=== PATIENT | female | born 1945 | race Caucasian/White ===

== ENCOUNTER → 2016-04-06 | Outpatient (CLI) | payer MEDICARE ==
--- NOTE | 2016-04-11 09:09 | MM ---
Reason for exam: screening (asymptomatic). Last mammogram was performed 1 year ago. History: Patient is postmenopausal and has history of other cancer at age 58. Took estrogen for 2 years 10 months beginning at age 59. Took progesterone for 2 years 10 months beginning at age 59. Physical Findings: A clinical breast exam by your physician is recommended on an annual basis and results should be correlated with mammographic findings. MG 3D Screening Mammo W/Cad Bilateral CC and MLO view(s) were taken. Prior study comparison: March 30, 2015, bilateral MG screening mammo w CAD. March 04, 2014, bilateral MG screening mammo w CAD. No significant changes when compared with prior studies. ASSESSMENT: Benign, BI-RAD 2 RECOMMENDATION: Routine screening mammogram of both breasts in 1 year.
== END | disposition home or self-care (01) ==
LOC: RADMAMWWP 14:00
PROVIDERS: ATTEND Obstetrics & Gynecology
DX: Z12.31 Encounter for screening mammogram for malignant neoplasm of breast (principal)
CPT/HCPCS: 77063; G0202

== ENCOUNTER → 2017-04-08 | Outpatient (CLI) | payer MEDICARE ==
--- NOTE | 2017-04-10 07:07 | MM ---
Reason for exam: screening (asymptomatic). Last mammogram was performed 1 year ago. History: Patient is postmenopausal and has history of other cancer at age 58. Took estrogen for 2 years 10 months beginning at age 59. Took progesterone for 2 years 10 months beginning at age 59. Physical Findings: A clinical breast exam by your physician is recommended on an annual basis and results should be correlated with mammographic findings. MG 3D Screening Mammo W/Cad Bilateral CC and MLO view(s) were taken. Prior study comparison: April 06, 2016, bilateral MG 3d screening mammo w/cad. March 30, 2015, bilateral MG screening mammo w CAD. March 04, 2014, bilateral MG screening mammo w CAD. The breast tissue is heterogeneously dense. This may lower the sensitivity of mammography. There are two stable benign appearing, round, circumscribed masses in the upper outer quadrant on the right breast back to 2013. No suspicious abnormality. No significant changes when compared with prior studies. ASSESSMENT: Benign, BI-RAD 2 RECOMMENDATION: Routine screening mammogram of both breasts in 1 year.
== END | disposition home or self-care (01) ==
LOC: RADMAMWWP 12:37
PROVIDERS: ATTEND Obstetrics & Gynecology
DX: Z12.31 Encounter for screening mammogram for malignant neoplasm of breast (principal)
CPT/HCPCS: 77063; 77067

== ENCOUNTER → 2018-02-07 | Outpatient (CLI) | payer MEDICARE ==
--- NOTE | 2018-02-08 13:27 | US ---
EXAMINATION TYPE: US kidneys/renal and bladder DATE OF EXAM: 02/07/2018 COMPARISON: NONE CLINICAL HISTORY: R31.9 HEMATURIA. episode of hematuria 8 weeks ago, no symptoms at time of exam EXAM MEASUREMENTS: Right Kidney: 8.8 x 4.4 x 3.4 cm Left Kidney: 9.5 x 3.6 x 4.2 cm Right Kidney: No hydronephrosis or masses seen Left Kidney: No hydronephrosis or masses seen Bladder: wnl Bilateral Jets seen: left jet only There is no evidence for hydronephrosis at this point in time. No nephrolithiasis is seen. No courtney s are identified. The urinary bladder is anechoic. Bilateral ureteral jets are seen. IMPRESSION: No evidence of hydronephrosis or nephrolithiasis. No sonographic sequela of medical renal disease see n.
== END | disposition home or self-care (01) ==
LOC: RADUSWWP 16:12
PROVIDERS: ATTEND Urology
DX: R31.9 Hematuria, unspecified (principal)
CPT/HCPCS: 76770

== ENCOUNTER → 2018-02-12 | Outpatient (CLI) | payer MEDICARE ==
--- NOTE | 2018-02-12 11:48 | CT ---
EXAMINATION TYPE: CT chest wo con DATE OF EXAM: 02/12/2018 COMPARISON: Prior films at [facility] unavailable for comparison HISTORY: pulmonary collapse CT DLP: 331 mGycm, Automated exposure control for dose reduction was used. CONTRAST: Performed injected with 0 mL of Isovue 300. TECHNIQUE: Axial images were obtained at 5 mm thick sections. Reconstructed images are reviewed on [employer] computer in the coronal plane. FINDINGS: Portion of the thyroid visualized is normal. Minimal infiltrate is in the medial right middle lobe. No enlarged mediastinal or hilar adenopathy is evident. The ascending aorta diameter at the level o f the main pulmonary artery is 3.3 cm. The main pulmonary artery diameter at the bifurcation is 2.6 cm. There is a moderate pericardial effusion. Limited CT sections are obtained through the upper abdomen. There appears to be a cyst at superior po le right lobe liver measuring 1.1 cm and 5 Hounsfield units. Tiny cyst may be within the left lobe li juancarlos. IMPRESSIONS: 1. Moderate pericardial effusion. 2. Hepatic cyst 3. Small right middle lobe streak opacity could be related atelectasis. Follow-up is recommended.
== END | disposition home or self-care (01) ==
LOC: RADCTMAIN 10:58
PROVIDERS: ATTEND Internal Medicine
DX: I31.3 Pericardial effusion (noninflammatory) (principal); R91.8 Other nonspecific abnormal finding of lung field; K76.89 Other specified diseases of liver
CPT/HCPCS: 71250

== ENCOUNTER → 2018-03-04 | Outpatient (CLI) | payer MEDICARE ==
--- NOTE | 2018-03-05 11:07 | ECHOF ---
Referral Reason:I31.3 Pericardial effusion, (noninflammatory) MEASUREMENTS -------- HEIGHT: 165.1 cm WEIGHT: 55.3 kg BP: 153/70 RVIDd: 3.5 cm (< 3.3) IVSd: 0.7 cm (0.6 - 1.1) LVIDd: 4.2 cm (3.9 - 5.3) LVPWd: 0.8 cm (0.6 - 1.1) IVSs: 1.1 cm LVIDs: 2.5 cm LVPWs: 1.4 cm LA Diam: 2.9 cm (2.7 - 3.8) LAESV Index (A-L): 15.34 ml/m Ao Diam: 3.3 cm (2.0 - 3.7) AV Cusp: 1.8 cm (1.5 - 2.6) MV EXCURSION: 13.362 mm (> 18.000) MV EF SLOPE: 55 mm/s (70 - 150) EPSS: 0.7 cm MV E Gabriel: 0.80 m/s MV DecT: 252 ms MV A Gabriel: 0.81 m/s MV E/A Ratio: 0.99 FINDINGS -------- Sinus rhythm. Resting bradycardia (HR<60bpm). This was a technically good study. The left ventricular size is normal. Left ventricular wall thickness is normal. Overall left vent ricular systolic function is normal with, an EF between 55 - 60 %. The right ventricle is mildly enlarged. Normal LA size by volume 22+/-6 ml/m2. The right atrium is normal in size. The aortic valve is trileaflet and appears structurally normal. The mitral valve is normal. Mild mitral regurgitation is present. The tricuspid valve appears structurally normal. Trace/mild (physiologic) pulmonic regurgitation. The aortic root size is normal. Normal inferior vena cava with normal inspiratory collapse consistent with estimated right atrial pre ssure of 5 mmHg. There is a small, generalized pericardial effusion present. CONCLUSIONS -------- 1. Sinus rhythm. 2. Resting bradycardia (HR<60bpm). 3. This was a technically good study. 4. The left ventricular size is normal. 5. Left ventricular wall thickness is normal. 6. Overall left ventricular systolic function is normal with, an EF between 55 - 60 %. 7. The right ventricle is mildly enlarged. 8. Normal LA size by volume 22+/-6 ml/m2. 9. The aortic valve is trileaflet and appears structurally normal. 10. Mild mitral regurgitation is present. 11. The tricuspid valve appears structurally normal. 12. Trace/mild (physiologic) pulmonic regurgitation. 13. The aortic root size is normal. 14. Normal inferior vena cava with normal inspiratory collapse consistent with estimated right atrial pressure of 5 mmHg. 15. There is a small, generalized pericardial effusion present. RN MEDICARE: Mirela Torres RDCS
== END | disposition home or self-care (01) ==
LOC: RADECHMAIN 13:14
PROVIDERS: ATTEND Internal Medicine
DX: I31.3 Pericardial effusion (noninflammatory) (principal); I34.0 Nonrheumatic mitral (valve) insufficiency; I51.7 Cardiomegaly; Z88.2 Allergy status to sulfonamides
CPT/HCPCS: 93306

== ENCOUNTER → 2018-04-09 | Outpatient (CLI) | payer MEDICARE ==
--- NOTE | 2018-04-09 16:40 | BD ---
EXAMINATION TYPE: Axial Bone Density DATE OF EXAM: 04/09/2018 CLINICAL HISTORY: Height: 64 inches Weight: 117 FRAX RISK QUESTIONS: Alcohol (3 or more units per day): no Family History (Parent hip fracture): yes Glucocorticoids (More than 3mos): no (Ex: prednisone, prednisolone, methylprednisolone, dexamethasone, and hydrocortisone). History of Fracture in Adulthood: yes, right distal femur when in 20's Secondary Osteoporosis: 1. Type 1 Diabetes: no 2. Hyperthyroidism: no 3. Menopause before 45: no, 46 4. Malnutrition: no 5. Chronic liver disease: no Rheumatoid Arthritis: no Current Tobacco Use: no RISK FACTORS HISTORY OF: Family History of Osteoporosis: unsure, probably not Active: yes Diet low in dairy products/other sources of calcium: somewhat Postmenopausal woman: yes Take estrogen and/or progesterone medications: not now How long: about 2 1/2 years Lost more than 2 inches in height since high school: no Frequent falls: no Poor Health: no Hyperparathyroidism: no Adrenal Insufficiency: no MEDICATIONS: Prednisone or other steroids: no Thyroid Medications: yes Which medication: Synthroid How Long: over 20 years Osteoporosis Medications: Which medication: Fosamax How Long: about the last 2 years( years ago also used Fosamax & Actonel) Additional Medications: blood pressure meds, cholesterol, multi-vitamin with calcium Additional History: EXAM MEASUREMENTS: Bone mineral densitometry was performed using the [employer] System. Bone mineral density as measured about the Lumbar spine is: ----- L1-L4(G/cm2): 1.195 T Score Values are as follows: ----- L2: 0.3 ----- L3: 0.6 ----- L4: 0.7 ----- L1-L4: 0.1 Bone mineral density has: Increased 6.6% since study of: 03/22/2016 Bone mineral density about the R hip (g/cm2): 0.784 Bone mineral density about the L hip (g/cm2): 0.858 T Score values are as follows: -----R Neck: -1.8 -----L Neck: -1.3 -----R Total: -2.7 -----L Total: -1.9 Bone mineral density has: Increased 2.7% since study of: 03/22/2016 IMPRESSION: Osteoporosis (T Score less than -2.5). There is increased fracture risk and therapy is usually indicated based on age. Re-Screen 1-2 years. NOTE: T-SCORE=SD OF THE YOUNG ADULT MEAN.
--- NOTE | 2018-04-12 12:20 | MM ---
Reason for exam: screening (asymptomatic). Last mammogram was performed 1 year ago. History: Patient is postmenopausal and has history of other cancer at age 58. Took estrogen for 2 years 10 months beginning at age 59. Took progesterone for 2 years 10 months beginning at age 59. MG 3D Screening Mammo W/Cad Bilateral CC and MLO view(s) were taken. Prior study comparison: April 08, 2017, bilateral MG 3d screening mammo w/cad. April 06, 2016, bilateral MG 3d screening mammo w/cad. The breast tissue is heterogeneously dense. This may lower the sensitivity of mammography. There are benign-appearing bilateral breast calcifications. No suspicious abnormality. ASSESSMENT: Benign, BI-RAD 2 RECOMMENDATION: Routine screening mammogram of both breasts in 1 year.
== END ==
LOC: RADMAMWWP 10:15
PROVIDERS: ATTEND Obstetrics & Gynecology
DX: Z12.31 Encounter for screening mammogram for malignant neoplasm of breast (principal); M81.0 Age-related osteoporosis without current pathological fracture
CPT/HCPCS: 77063; 77067; 77080

== ENCOUNTER 2019-03-21 11:15 | Emergency (ER) | payer MEDICARE ==
[2019-03-21 11:23] VITALS: TEMP 97.9
[2019-03-21] MEDS ORDERED: SODIUM CHLORIDE 0.9% 1,000 ML IV STA (11:51)
[2019-03-21] MEDS ORDERED: ONDANSETRON 4 MG/2 ML VIAL IVP STA (11:51)
--- NOTE | 2019-03-21 11:52 | ED ---
GI Bleed HPI - General Chief complaint: GI Bleed Stated complaint: vomiting/diarrhea/blood in stool Time Seen by Provider: 03/21/19 11:25 Source: patient Mode of arrival: ambulatory Limitations: no limitations - History of Present Illness Initial comments: 73-year-old female presenting today for chief complaint of blood in stools per patient states she woke up in the middle the night and had 4 hours of vomiting and diarrhea. She states the last 2 episodes of diarrhea she had blood in the stool she states it is a pretty significant amount. Patient denies additional episodes she states that she does have history of hemorrhoids. Patient denies any known history of diverticulosis. Patient denies any anticoagulation use. Patient denies any large clots in the bowel movements. Patient states that she do not have any severe abdominal pain she states is more crampy in nature and not localize more diffuse. Patient states that has completely subsided. Patient states she is feeling better and feels like she has an appetite. Review of systems negative upon arrival patient appears well no signs acute distress hemodynamically stable - Related Data Allergies Allergy/AdvReac Type Severity Reaction Status Date / Time Sulfa (Sulfonamide Allergy Rash/Hives Verified 03/21/19 11:19 Antibiotics) Review of Systems ROS Statement: Those systems with pertinent positive or pertinent negative responses have been documented in the HPI. ROS Other: All systems not noted in ROS Statement are negative. Past Medical History Past Medical History: Hyperlipidemia, Hypertension, Thyroid Disorder History of Any Multi-Drug Resistant Organisms: None Reported Past Surgical History: No Surgical Hx Reported Past Psychological History: No Psychological Hx Reported Smoking Status: Never smoker Past Alcohol Use History: None Reported, Occasional Past Drug Use History: None Reported General Exam - General Exam Comments Initial Comments: General: The patient is awake and alert, in no distress, and does not appear acutely ill. Eye: +3 mm pupils are equal, round and reactive to light, extra-ocular movements are intact. No nystagmus. There is normal conjunctiva bilaterally. No signs of icterus. Ears, nose, mouth and throat: There are moist mucous membranes and no oral lesions. Neck: The neck is supple, there is no tenderness or JVD. Cardiovascular: There is a regular rate and rhythm. No murmur, rub or gallop is appreciated. Respiratory: Lungs are clear to auscultation, respirations are non-labored, breath sounds are equal. No wheezes, stridor, rales, or rhonchi. Gastrointestinal: Soft, non-distended, non-tender abdomen without masses or organomegaly noted. There is no rebound or guarding present. No bright red blood on digital rectal examination obvious internal or external hemorrhoids. I do not appear thrombosed. Musculoskeletal: Normal ROM, no tenderness. Strength 5/5. Sensation intact. Radial pulses equal bilaterally 2+. Neurological: A&O x 3. CN II-XII intact grossly, There are no obvious motor or sensory deficits. Coordination appears grossly intact. Speech is normal. Skin: Skin is warm and dry and no rashes or lesions are noted. Psychiatric: Cooperative, appropriate mood & affect, normal judgment. Limitations: no limitations Course Vital Signs 03/21/19 03/21/19 11:20 13:40 Temperature 97.9 F 97.9 F Pulse Rate 106 H 59 L Respiratory 18 16 Rate Blood Pressure 151/80 145/81 O2 Sat by Pulse 97 100 Oximetry Medical Decision Making - Medical Decision Making 73-year-old female presenting today for chief complaint of blood in stools 2 episodes history of hemorrhoids. Rectal exam revealed no blood. Patient denies additional episodes. Hemoglobin stable patient states she is initially anxious upon arrival repeat heart rate within normal limits. Patient does not appear pale nor diaphoretic. Patient benign abdominal exam. Discussed imaging studies at this time the patient most likely has GI bleeding from colitis given history of vomiting diarrhea. I discussed the case with attending provider Dr. Finley who agrees with impression he is agreeable to discharge and very strict return parameters were discussed at length the patient patient was discharged appearing well with instruction to return to emergency department for additional episodes of bloody stools. - Lab Data Result diagrams: 03/21/19 11:55 03/21/19 11:55 Lab Results 03/21/19 03/21/19 03/21/19 Range/Units 11:40 11:55 11:55 WBC 8.7 (3.8-10.6) k/uL RBC 4.77 (3.80-5.40) m/uL Hgb 14.6 (11.4-16.0) gm/dL Hct 43.1 (34.0-46.0) % MCV 90.4 (80.0-100.0) fL MCH 30.7 (25.0-35.0) pg MCHC 33.9 (31.0-37.0) g/dL RDW 12.1 (11.5-15.5) % Plt Count 209 (150-450) k/uL Neutrophils % 87 % Lymphocytes % 9 % Monocytes % 3 % Eosinophils % 0 % Basophils % 0 % Neutrophils # 7.6 (1.3-7.7) k/uL Lymphocytes # 0.8 L (1.0-4.8) k/uL Monocytes # 0.2 (0-1.0) k/uL Eosinophils # 0.0 (0-0.7) k/uL Basophils # 0.0 (0-0.2) k/uL APTT (22.0-30.0) sec Sodium 140 (137-145) mmol/L Potassium 3.8 (3.5-5.1) mmol/L Chloride 103 (98-107) mmol/L Carbon Dioxide 30 (22-30) mmol/L Anion Gap 7 mmol/L BUN 16 (7-17) mg/dL Creatinine 0.80 (0.52-1.04) mg/dL Est GFR (CKD-EPI)AfAm 84 (>60 ml/min/1.73 sqM) Est GFR (CKD-EPI)NonAf 73 (>60 ml/min/1.73 sqM) Glucose 121 H (74-99) mg/dL Calcium 9.6 (8.4-10.2) mg/dL Total Bilirubin 1.0 (0.2-1.3) mg/dL AST 32 (14-36) U/L ALT 14 (4-34) U/L Alkaline Phosphatase 52 (38-126) U/L Total Protein 7.6 (6.3-8.2) g/dL Albumin 4.5 (3.5-5.0) g/dL Stool Occult Blood Positive H (Negative) 03/21/19 Range/Units 11:55 WBC (3.8-10.6) k/uL RBC (3.80-5.40) m/uL Hgb (11.4-16.0) gm/dL Hct (34.0-46.0) % MCV (80.0-100.0) fL MCH (25.0-35.0) pg MCHC (31.0-37.0) g/dL RDW (11.5-15.5) % Plt Count (150-450) k/uL Neutrophils % % Lymphocytes % % Monocytes % % Eosinophils % % Basophils % % Neutrophils # (1.3-7.7) k/uL Lymphocytes # (1.0-4.8) k/uL Monocytes # (0-1.0) k/uL Eosinophils # (0-0.7) k/uL Basophils # (0-0.2) k/uL APTT 24.1 (22.0-30.0) sec Sodium (137-145) mmol/L Potassium (3.5-5.1) mmol/L Chloride (98-107) mmol/L Carbon Dioxide (22-30) mmol/L Anion Gap mmol/L BUN (7-17) mg/dL Creatinine (0.52-1.04) mg/dL Est GFR (CKD-EPI)AfAm (>60 ml/min/1.73 sqM) Est GFR (CKD-EPI)NonAf (>60 ml/min/1.73 sqM) Glucose (74-99) mg/dL Calcium (8.4-10.2) mg/dL Total Bilirubin (0.2-1.3) mg/dL AST (14-36) U/L ALT (4-34) U/L Alkaline Phosphatase (38-126) U/L Total Protein (6.3-8.2) g/dL Albumin (3.5-5.0) g/dL Stool Occult Blood (Negative) Disposition Clinical Impression: Blood in stool, Diarrhea, Vomiting Disposition: HOME SELF-CARE Condition: Good Instructions (If sedation given, give patient instructions): Gastrointestinal Bleeding (ED) Additional Instructions: Please use medication as discussed. Please follow-up with family doctor in the next 2 days.. Please return to emergency room if the symptoms increase or worsen or for any other concerns-STRICT return parameters as discussed for bleeding episodes. Is patient prescribed a controlled substance at d/c from ED?: No Referrals: Neel Vale MD [Primary Care Provider] - 1-2 days Time of Disposition: 12:53
[2019-03-21 12:09] LABS: Basophils % (A) 0 %; Eosinophils % (A) 0 %; HCT 43.1 % (34.0-46.0); HGB 14.6 gm/dL (11.4-16.0); Lymphocytes # (A) 0.8 k/uL (1.0-4.8); Lymphocytes % (A) 9 %; MCH 30.7 pg (25.0-35.0); MCHC 33.9 g/dL (31.0-37.0); MCV 90.4 fL (80.0-100.0); Mean Platelet Volume 7.8; Monocytes # (A) 0.2 k/uL (0-1.0); Monocytes % (A) 3 %; Neutrophils # (A) 7.6 k/uL (1.3-7.7); Neutrophils % (A) 87 %; Platelet Count 209 k/uL (150-450); RBC 4.77 m/uL (3.80-5.40); RDW 12.1 % (11.5-15.5); WBC 8.7 k/uL (3.8-10.6)
[2019-03-21 12:20] LABS: Albumin 4.5 g/dL (3.5-5.0); Calcium 9.6 mg/dL (8.4-10.2); Potassium 3.8 mmol/L (3.5-5.1); Total Protein 7.6 g/dL (6.3-8.2)
[2019-03-21 13:41] VITALS: BP 145/81; PULSE 59; RESP 16
== END 2019-03-21 13:47 | disposition home or self-care (01) ==
LOC: EC 11:15
DX: K92.1 Melena (principal); R11.10 Vomiting, unspecified; R19.7 Diarrhea, unspecified; I10 Essential (primary) hypertension; Z88.2 Allergy status to sulfonamides
CPT/HCPCS: 36415; 80053; 85025; 85730; 82272; 99284; 96374; 96361; J2405

== ENCOUNTER 2019-03-21 18:13 | Observation (INO) | payer MEDICARE ==
[2019-03-21] MEDS ORDERED: SODIUM CHLORIDE 0.9% 500 ML 500 ML IV STA (19:01)
[2019-03-21 19:33] LABS: Basophils % (A) 0 %; Eosinophils # (A) 0.1 k/uL (0-0.7); Eosinophils % (A) 1 %; HCT 45.3 % (34.0-46.0); Lymphocytes # (A) 1.1 k/uL (1.0-4.8); Lymphocytes % (A) 10 %; MCHC 33.1 g/dL (31.0-37.0); MCV 90.4 fL (80.0-100.0); Mean Platelet Volume 7.6; Monocytes # (A) 0.3 k/uL (0-1.0); Monocytes % (A) 3 %; Neutrophils # (A) 9.1 k/uL (1.3-7.7); Neutrophils % (A) 85 %; Platelet Count 187 k/uL (150-450); RBC 5.02 m/uL (3.80-5.40); RDW 12.1 % (11.5-15.5); WBC 10.6 k/uL (3.8-10.6)
[2019-03-21 19:42] LABS: ALT 13 U/L (4-34); AST 31 U/L (14-36); African American GFR (CKD) >90 (>60 ml/min/1.73 sqM); Albumin 4.2 g/dL (3.5-5.0); Alkaline Phosphatase 51 U/L (38-126); Anion Gap 6 mmol/L; Blood Urea Nitrogen 13 mg/dL (7-17); Calcium 8.9 mg/dL (8.4-10.2); Carbon Dioxide 28 mmol/L (22-30); Chloride 107 mmol/L (98-107); Glucose 108 mg/dL (74-99); Non-African American GFR(CKD) 80 (>60 ml/min/1.73 sqM); Potassium 3.8 mmol/L (3.5-5.1); Sodium 141 mmol/L (137-145)
[2019-03-21 19:45] LABS: INR 0.9 (<1.2); Prothrombin Time 9.9 sec (9.0-12.0)
--- NOTE | 2019-03-21 20:31 | CT ---
EXAMINATION TYPE: CT abdomen pelvis w con DATE OF EXAM: 03/21/2019 COMPARISON: None HISTORY: abdominal pain, vomiting, diarrhea, blood in stool. CT DLP: 577.3 mGycm Automated exposure control for dose reduction was used. CONTRAST: Performed with IV Contrast, patient injected with 100 mL of Isovue 300. There is mild subsegmental atelectasis at the left lung base. There is pericardial effusion. There is small left pleural effusion. There is 1.5 cm cyst in the right lobe of the liver. Gallbladder appears normal. Bile ducts are not d ilated. Spleen is intact. There is no pancreatic mass. Stomach is intact. There is no adrenal mass. Kidneys show satisfactory contrast opacification. There is no hydronephrosi s. Ureters are not dilated. Bladder distends smoothly. There is no inguinal hernia. There is free fluid in the pelvis. There are numerous sigmoid diverticula. There is a segment of mid transverse colon with significant wall thickening and surrounding edema. Wall measures up to 1.5 cm. The cecum appears normal. Terminal ileum appears normal. There is no sign of thickened appendix. There is no free air. Lumbar spine is intact. There is no compression fracture. Bony pelvis is intact . There is mild multilevel spondylotic change in the lumbar spine. IMPRESSION: Cardiomegaly with pericardial effusion and small left pleural effusion. Significant wall thickening and surrounding edema in the mid transverse colon likely relates to a non specific colitis. No free air. Mild free fluid in the pelvis.
[2019-03-21] MEDS ORDERED: metroNIDAZOLE-NS PMX 500 MG in SALINE 1 100ML.BAG IVPB STA (21:21)
[2019-03-21] MEDS ORDERED: NALOXONE 0.4 MG/ML 1 ML VIAL IV PRN (21:59)
--- NOTE | 2019-03-21 21:59 | ED ---
General Adult HPI - General Source: patient, RN notes reviewed, old records reviewed Mode of arrival: ambulatory Limitations: no limitations <Jalil Lazo - Last Filed: 03/21/19 23:01> <Neela Daley - Last Filed: 03/22/19 05:52> - General Chief complaint: GI Bleed Stated complaint: Rectal bleeding Time Seen by Provider: 03/21/19 18:46 - History of Present Illness Initial comments: 73-year-old female patient presents to ED for chief complaint of rectal bleeding, and nausea vomiting diarrhea. This began early this morning approximately 2 AM. Patient presents to emergency department earlier today, had a workup significant for occult positive. Patient was offered admission but preferred to go home and monitor symptoms. Patient reportedly had 2 more episodes of bloody stools. Reports that it is bright red. Patient has history of hemorrhoids. Reports some cramping abdominal pains pubic left lower complaints at this time. Systemic: Pt denies fatigue, fever/chills, rash. Pt denies weakness, night sweats, weight loss. Neuro: Pt denies headache, visual disturbances, syncope or pre-syncope. HEENT: Pt denies ocular discharge or irritation, otalgia, rhinorrhea, pharyngitis or notable lymphadenopathy. Cardiopulmonary: Pt denies chest pain, SOB, heart palpitations, dyspnea on exertion. Abdominal/GI: Pt denies abdominal pain, n/v/d. : Pt denies dysuria, burning w/ urination, frequency/urgency. Denies new onset urinary or bowel incontinence. MSK: Pt denies myalgia, loss of strength or function in extremities. Neuro: Pt denies new onset weakness, paresthesias. (Jalil Lazo) - Related Data Home Medications Medication Instructions Recorded Confirmed Alendronate Sodium [Fosamax] 70 mg PO SA 03/21/19 03/21/19 Biotin 5 mg PO DAILY 03/21/19 03/21/19 Levothyroxine Sodium [Synthroid] 50 mcg PO HS 03/21/19 03/21/19 Lisinopril [Zestril] 2.5 mg PO HS 03/21/19 03/21/19 Multivitamins, Thera [Multivitamin 1 tab PO DAILY 03/21/19 03/21/19 (formulary)] Simvastatin [Zocor] 20 mg PO HS 03/21/19 03/21/19 Vitamin E (Dl,Tocopheryl Acet) 400 unit PO DAILY 03/21/19 03/21/19 [Vitamin E] Allergies Allergy/AdvReac Type Severity Reaction Status Date / Time Sulfa (Sulfonamide Allergy Rash/Hives Verified 03/21/19 22:04 Antibiotics) Review of Systems ROS Other: All systems not noted in ROS Statement are negative. <Jalil Lazo - Last Filed: 03/21/19 23:01> ROS Other: All systems not noted in ROS Statement are negative. <Neela Daley - Last Filed: 03/22/19 05:52> ROS Statement: Those systems with pertinent positive or pertinent negative responses have been documented in the HPI. Past Medical History Past Medical History: Hyperlipidemia, Hypertension, Thyroid Disorder History of Any Multi-Drug Resistant Organisms: None Reported Past Surgical History: No Surgical Hx Reported Past Psychological History: No Psychological Hx Reported Smoking Status: Never smoker Past Alcohol Use History: None Reported, Occasional Past Drug Use History: None Reported <Jalil Lazo - Last Filed: 03/21/19 23:01> General Exam Limitations: no limitations <Jalil Lazo - Last Filed: 03/21/19 23:01> - General Exam Comments Initial Comments: Constitutional: NAD, AOX3, Pt has pleasant affect. HEENT: NC/AT, trachea midline, neck supple, no lymphadenopathy. Posterior pharynx non erythematous, without exudates. External ears appear normal, without discharge. Mucous membranes moist. Eyes PERRLA, EOM intact. There is no scleral icterus. No pallor noted. Cardiopulmonary: RRR, no murmurs, rubs or gallops, no JVD noted. Lungs CTAB in anterior and posterior groves. No peripheral edema. Abdominal exam: Abdomen soft and non-distended. Abdomen mild tenderness to palpation suprapubic left lower quadrant region.. Bowel sounds active in LLQ. No hepatosplenomegaly. No ecchymosis Neuro: CN II-XII grossly intact. No nuchal rigidity. No raccon eyes, no mitchell sign, no hemotympanum. No cervical spinal tenderness. MSK: No posterior calf tenderness bilaterally, homans sign negative bilaterally. Posterior tibialis and radial pulse +2 bilaterally. Sensation intact in upper and lower extremities. Full active ROM in upper and lower extremities, 5/5 stregnth. Rectal: External hemorrhoids noted, maroon blood noted, chaperonged by RN Christin (Jalil Lazo) Course Vital Signs 03/21/19 03/21/19 03/21/19 18:41 18:42 19:27 Temperature 98 F Pulse Rate 81 60 Respiratory 16 20 18 Rate Blood Pressure 134/78 O2 Sat by Pulse 97 97 Oximetry 03/21/19 03/21/19 03/21/19 19:30 19:40 19:42 Temperature Pulse Rate 61 63 Respiratory 18 20 Rate Blood Pressure 140/80 O2 Sat by Pulse 96 99 Oximetry 03/21/19 03/21/19 03/21/19 19:50 20:01 20:10 Temperature Pulse Rate 66 61 Respiratory 16 18 Rate Blood Pressure 145/72 140/76 O2 Sat by Pulse 99 98 Oximetry 03/21/19 03/21/19 03/21/19 20:20 20:31 20:40 Temperature Pulse Rate 66 Respiratory 16 16 Rate Blood Pressure 140/76 140/76 135/67 O2 Sat by Pulse 100 99 Oximetry 03/21/19 03/21/19 03/21/19 20:42 20:50 21:00 Temperature Pulse Rate 63 Respiratory 20 19 20 Rate Blood Pressure 135/67 135/67 O2 Sat by Pulse 100 98 Oximetry 03/21/19 03/21/19 03/21/19 21:30 22:00 22:30 Temperature Pulse Rate 67 70 Respiratory 16 16 Rate Blood Pressure 134/70 130/98 139/76 O2 Sat by Pulse 97 97 Oximetry 03/22/19 03/22/19 03/22/19 01:25 02:17 04:21 Temperature 98.0 F 98.6 F Pulse Rate 59 L 60 72 Respiratory 18 14 17 Rate Blood Pressure 157/71 140/73 O2 Sat by Pulse 98 97 Oximetry Medical Decision Making - Lab Data Result diagrams: 03/21/19 19:15 03/21/19 19:15 - EKG Data -: EKG Interpreted by Ma <Jalil Lazo - Last Filed: 03/21/19 23:01> - Lab Data Result diagrams: 03/21/19 19:15 03/21/19 19:15 <Neela Daley - Last Filed: 03/22/19 05:52> - Medical Decision Making 73-year-old female patient presents to ED for chief complaint rectal bleeding began earlier today. Patient will signs are stable, afebrile. Physical exam displayed and nontender suprapubic left lower quadrant region. External maroon blood was noted. Hemoccult is pending. Laboratory investigations are stable, hemoglobin 15. CT abdomen and pelvis display cardiomegaly with recurrent effusion, small left pleural effusion, significant wall thickening surrounding edema and mid transverse colon likely related to nonspecific colitis. No free fluid in the pelvis. EKG is nonischemic. Patient initiated on Rocephin, Flagyl. Patient admitted to Dr. Gonzalez. Case discussed with Dr. Daley. (Jalil Lazo) I personally saw and evaluated the patient. Patient is hemodynamically stable experiencing mild abdominal pain is noted to have computed tomography scan with colitis. Upon my evaluation patient was feeling somewhat better and asking for broth to drink. Patient will be given this. Patient will be admitted for colitis with GI bleeding, it appeared antibiotics ordered. Patient remained hemodynamically stable in the emergency department. (Neela Daley) - Lab Data Lab Results 03/21/19 03/21/19 03/21/19 Range/Units 19:15 19:15 19:15 WBC 10.6 (3.8-10.6) k/uL RBC 5.02 (3.80-5.40) m/uL Hgb 15.0 (11.4-16.0) gm/dL Hct 45.3 (34.0-46.0) % MCV 90.4 (80.0-100.0) fL MCH 30.0 (25.0-35.0) pg MCHC 33.1 (31.0-37.0) g/dL RDW 12.1 (11.5-15.5) % Plt Count 187 (150-450) k/uL Neutrophils % 85 % Lymphocytes % 10 % Monocytes % 3 % Eosinophils % 1 % Basophils % 0 % Neutrophils # 9.1 H (1.3-7.7) k/uL Lymphocytes # 1.1 (1.0-4.8) k/uL Monocytes # 0.3 (0-1.0) k/uL Eosinophils # 0.1 (0-0.7) k/uL Basophils # 0.0 (0-0.2) k/uL PT (9.0-12.0) sec INR (<1.2) APTT (22.0-30.0) sec Sodium 141 (137-145) mmol/L Potassium 3.8 (3.5-5.1) mmol/L Chloride 107 (98-107) mmol/L Carbon Dioxide 28 (22-30) mmol/L Anion Gap 6 mmol/L BUN 13 (7-17) mg/dL Creatinine 0.74 (0.52-1.04) mg/dL Est GFR (CKD-EPI)AfAm >90 (>60 ml/min/1.73 sqM) Est GFR (CKD-EPI)NonAf 80 (>60 ml/min/1.73 sqM) Glucose 108 H (74-99) mg/dL Plasma Lactic Acid [place] 1.0 (0.7-2.0) mmol/L Calcium 8.9 (8.4-10.2) mg/dL Total Bilirubin 1.0 (0.2-1.3) mg/dL AST 31 (14-36) U/L ALT 13 (4-34) U/L Alkaline Phosphatase 51 (38-126) U/L Troponin I (0.000-0.034) ng/mL Total Protein 7.0 (6.3-8.2) g/dL Albumin 4.2 (3.5-5.0) g/dL Lipase 207 (23-300) U/L Influenza Type A RNA (Not Detectd) Influenza Type B (PCR) (Not Detectd) 03/21/19 03/21/19 03/21/19 Range/Units 19:15 19:15 19:29 WBC (3.8-10.6) k/uL RBC (3.80-5.40) m/uL Hgb (11.4-16.0) gm/dL Hct (34.0-46.0) % MCV (80.0-100.0) fL MCH (25.0-35.0) pg MCHC (31.0-37.0) g/dL RDW (11.5-15.5) % Plt Count (150-450) k/uL Neutrophils % % Lymphocytes % % Monocytes % % Eosinophils % % Basophils % % Neutrophils # (1.3-7.7) k/uL Lymphocytes # (1.0-4.8) k/uL Monocytes # (0-1.0) k/uL Eosinophils # (0-0.7) k/uL Basophils # (0-0.2) k/uL PT 9.9 (9.0-12.0) sec INR 0.9 (<1.2) APTT 25.0 (22.0-30.0) sec Sodium (137-145) mmol/L Potassium (3.5-5.1) mmol/L Chloride (98-107) mmol/L Carbon Dioxide (22-30) mmol/L Anion Gap mmol/L BUN (7-17) mg/dL Creatinine (0.52-1.04) mg/dL Est GFR (CKD-EPI)AfAm (>60 ml/min/1.73 sqM) Est GFR (CKD-EPI)NonAf (>60 ml/min/1.73 sqM) Glucose (74-99) mg/dL Plasma Lactic Acid [place] (0.7-2.0) mmol/L Calcium (8.4-10.2) mg/dL Total Bilirubin (0.2-1.3) mg/dL AST (14-36) U/L ALT (4-34) U/L Alkaline Phosphatase (38-126) U/L Troponin I <0.012 (0.000-0.034) ng/mL Total Protein (6.3-8.2) g/dL Albumin (3.5-5.0) g/dL Lipase (23-300) U/L Influenza Type A RNA Not Detected (Not Detectd) Influenza Type B (PCR) Not Detected (Not Detectd) - EKG Data EKG Comments: Intermittent C6, painful and 54, QRS 74, QT/QTc 426 is 444. Normal sinus rhy thm, nonspecific T wave abnormality. Abnormal EKG. No concern for acute ischemia. (Jalil Lazo) Disposition Is patient prescribed a controlled substance at d/c from ED?: No <Jalil Lazo - Last Filed: 03/21/19 23:01> <Neela Daley - Last Filed: 03/22/19 05:52> Clinical Impression: Rectal bleeding Disposition: ADMITTED IP TO THIS HOSP Condition: Serious
[2019-03-21] MEDS: SODIUM CHLORIDE 0.9% 1,000 ML IV SCH (22:27)
[2019-03-21 22:53] LABS: Appearance,Urine Clear (Clear); Bilirubin,Urine Negative (Negative); Blood,Urine Small (Negative); Color,Urine Light Yellow; Glucose,Urine (UA) Negative (Negative); Ketones,Urine 1+ (Negative); Leukocyte Esterase,Urine Small (Negative); Mucus,Urine Rare /hpf; Nitrite,Urine Negative (Negative); Protein,Urine Negative (Negative); RBC,Urine 3 /hpf (0-5); Squamous Epithelial Cell,Urine 1 /hpf (0-4); Urobilinogen,Urine <2.0 mg/dL (<2.0); WBC,Urine 2 /hpf (0-5)
[2019-03-21 22:55] LABS: Specific Gravity,Urine >1.050 (1.001-1.035)
--- NOTE | 2019-03-22 00:19 | P.HPIM ---
History of Present Illness H&P Date: 03/21/19 The patient is 73-year-old female with a PMH of HTN, HLD, hemorrhoids, and hypothyroidism who presented to the ED with complaints of blood in her stools, abdominal pain, nausea, vomiting, and diarrhea. The patient notes that all of her symptoms started at around 11:30 PM yesterday. She does not recall eating anything different prior to the onset. She initially developed a diffuse lower abdominal pain, unable to characterize, 8 out of 10, nonradiating, with associated nausea, nonbloody emesis, and diarrhea. The abdominal pain and the remaining symptoms lasted for roughly 4 hours and then improved significantly. She then noticed that with her soft to watery diarrhea, there was blood on the toilet paper upon wiping, which was bright red, along with some specks of blood in the toilet bowl with some amount of mucus. Upon seeing the blood in 2 different bowel movements, the patient decided to come to the emergency room. She was offered an admission versus outpatient management, and the patient decided to continue to watch her symptoms at home. She then however had another episode of watery stools, after which she returned to the ED. At time of interview, she reported that her abdominal pain was a 1 out of 10 and she denied any additional complaints. She denied fever, chills, chest pain, leg pain, dizziness, recent travel, or sick contacts. She underwent an extensive evalua tion in the emergency room with an abdomen/pelvis computed tomography scan with contrast which revealed cardiomegaly with pericardial effusion along with significant wall thickening and surrounding edema in the mid transverse colon likely related to nonspecific colitis along with mild free fluid in the pelvis with no free air. EKG revealed a normal sinus rhythm at 66 bpm with T-wave inversion V1 and T-wave flattening in V2 to V6. Laboratory evaluation revealed a WBC count of 10.6, hemoglobin 15, platelets 187, sodium 141, potassium 3.8, chloride 107, CO2 28, BUN 13, creatinine 0.74, influenza negative, and glucose 108. Review of Systems Pertinent positives and negatives as discussed in HPI, a complete review of systems was performed and all other systems are negative. Past Medical History Past Medical History: Hyperlipidemia, Hypertension, Thyroid Disorder History of Any Multi-Drug Resistant Organisms: None Reported Past Surgical History: No Surgical Hx Reported Past Psychological History: No Psychological Hx Reported Smoking Status: Never smoker Past Alcohol Use History: None Reported, Occasional Past Drug Use History: None Reported Medications and Allergies Home Medications Medication Instructions Recorded Confirmed Type Alendronate Sodium [Fosamax] 70 mg PO SA 03/21/19 03/21/19 History Biotin 5 mg PO DAILY 03/21/19 03/21/19 History Levothyroxine Sodium [Synthroid] 50 mcg PO HS 03/21/19 03/21/19 History Lisinopril [Zestril] 2.5 mg PO HS 03/21/19 03/21/19 History Multivitamins, Thera [Multivitamin 1 tab PO DAILY 03/21/19 03/21/19 History (formulary)] Simvastatin [Zocor] 20 mg PO HS 03/21/19 03/21/19 History Vitamin E (Dl,Tocopheryl Acet) 400 unit PO DAILY 03/21/19 03/21/19 History [Vitamin E] Allergies Allergy/AdvReac Type Severity Reaction Status Date / Time Sulfa (Sulfonamide Allergy Rash/Hives Verified 03/21/19 22:04 Antibiotics) Physical Exam Vitals: Vital Signs Temp Pulse Resp BP Pulse Ox 03/21/19 22:30 139/76 03/21/19 22:00 70 16 130/98 97 03/21/19 21:30 67 16 134/70 97 03/21/19 21:00 63 20 135/67 98 03/21/19 20:50 19 135/67 100 03/21/19 20:42 20 03/21/19 20:40 66 16 135/67 99 03/21/19 20:31 16 140/76 100 03/21/19 20:20 140/76 03/21/19 20:10 18 140/76 03/21/19 20:01 61 16 145/72 98 03/21/19 19:50 66 99 03/21/19 19:42 20 03/21/19 19:40 63 99 03/21/19 19:30 61 18 140/80 96 03/21/19 19:27 60 18 97 03/21/19 18:42 20 03/21/19 18:41 98 F 81 16 134/78 97 Intake and Output 03/21/19 03/21/19 03/22/19 14:59 22:59 06:59 Other: Weight 55.338 kg General: non toxic, no distress, appears at stated age, normal weight Derm: no unusual rashes/lesions no unusual ecchymoses, warm, dry Head: atraumatic, normocephalic, symmetric Eyes: EOMI, no lid lag, anicteric sclera, pupils equal round reactive to light ENT: Nose and ears atraumatic, no thrush, no pharyngeal erythema Neck: No thyromegaly, no cervical lymphadenopathy, trachea midline, supple Mouth: no lip lesion, mucus membranes moist Cardiovascular: S1S2 reg, no murmur, positive posterior tibial pulse bilateral, no edema, capillary refill less than 2 seconds Lungs: CTA bilateral, no rhonchi, no rales , no accessory muscle use Abdominal: soft, nontender to palpation, no guarding, no appreciable organomegaly, normal bowel sounds Ext: no gross muscle atrophy, muscle strength 5 out of 5 in all 4 extremities grossly, no contractures, Neuro: CN II-XI grossly intact, light touch intact all 4 extremities, finger to nose within normal limits, Psych: Alert, oriented, appropriate affect Results CBC & Chem 7: 03/21/19 19:15 03/21/19 19:15 Labs: Abnormal Lab Results - Last 24 Hours (Table) 03/21/19 03/21/19 03/21/19 Range/Units 19:15 19:15 22:40 Neutrophils # 9.1 H (1.3-7.7) k/uL Glucose 108 H (74-99) mg/dL Ur Specific [place] >1.050 H (1.001-1.035) Urine Ketones 1+ H (Negative) Urine Blood Small H (Negative) Ur Leukocyte Esterase Small H (Negative) Urine Mucus Rare H (None) /hpf Stool Occult Blood (Negative) 03/21/19 Range/Units 22:40 Neutrophils # (1.3-7.7) k/uL Glucose (74-99) mg/dL Ur Specific [place] (1.001-1.035) Urine Ketones (Negative) Urine Blood (Negative) Ur Leukocyte Esterase (Negative) Urine Mucus (None) /hpf Stool Occult Blood Positive H (Negative) Assessment and Plan Plan: Colitis -Will c/w Metronidazole for now -Clear liquid diet -GI consult -Stool culture Hematochezia -Possibly secondary to hemorrhoids vs colitis -Monitor CBC -GI consulted Pericardial effusion with cardiomegaly -Obtain Echocardiogram Chronic conditions: HTN, HLD, Hypothyroidism -C/w home meds DVT prophylaxis -IPCDs The patient is admitted with an anticipated greater than 2 midnight stay for evaluation of colitis CODE STATUS: Full Code Discussed with: Patient Anticipated discharge date: 2-[address]: Home A total of 40 minutes was spent on the care of this complex patient more than 50% of the time was spent in counseling and care coordination.
[2019-03-22] MEDS ORDERED: MORPHINE SULFATE 2 MG/ML SYRINGE IVP STA (00:27)
[2019-03-22] MEDS ORDERED: metroNIDAZOLE 500 MG TAB PO SCH (09:00)
[2019-03-22] MEDS ORDERED: KETOROLAC 30 MG/ML 1 ML VIAL IVP PRN (09:37)
[2019-03-22] MEDS ORDERED: ONDANSETRON 4 MG/2 ML VIAL IVP PRN (09:38)
--- NOTE | 2019-03-22 09:42 | P.PN ---
Subjective Progress Note Date: 03/22/19 Principal diagnosis: Abdominal pain Patient is feeling okay currently, no abdominal pain, no nausea or vomiting. Last night she ate some chicken broth and that made her feel like she wanted to throw up. Has not had diarrhea last night. Objective - Vital Signs Vital signs: Vital Signs Temp 97.6 F 03/22/19 08:00 Pulse 65 03/22/19 08:00 Resp 16 03/22/19 09:00 BP 140/73 03/22/19 08:00 Pulse Ox 97 03/22/19 09:00 Intake & Output 03/21/19 03/22/19 03/22/19 18:59 06:59 18:59 Weight 55.338 kg - Exam Constitutional: No acute distress, conversant, pleasant Eyes:Anicteric sclerae, moist conjunctiva, no lid-lag, PERRLA, ENMT: Oropharynx clear, no erythema, exudates Neck: Supple, FROM, no masses, or JVD, No carotid bruits, No thyromegaly Lungs: Clear to auscultation, Clear to percussion, Normal respiratory effort, no accessory muscle use Cardiovascular: Heart regular in rate and rhythm, No murmurs, gallops, or rubs, No peripheral edema Abdominal: Soft, right lower quadrant tender, no guarding, rebound or rigidity, Normoactive bowel sounds, No hepatomegaly, No splenomegaly, No palpable mass Skin: Normal temperature, tone, texture, turgor, no induration, No subcutaneous nodules, No rash, lesions, No ulcers Extremities: No digital cyanosis, No clubbing, Pedal pulses intact and symmetrical, Radial pulses intact and symmetrical, No calf tenderness Psychiatric: Alert and oriented to person, place and time, appropriate affect, intact judgement Neuro: Muscles Strength 5/5 in all 4 extremities, Sensation to light touch grossly present throughout, Cranial nerves II-XII grossly intact, no focal sensory deficits - Labs CBC & Chem 7: 03/21/19 19:15 03/21/19 19:15 Labs: Abnormal Lab Results - Last 24 Hours (Table) 03/21/19 03/21/19 03/21/19 Range/Units 19:15 19:15 22:40 Neutrophils # 9.1 H (1.3-7.7) k/uL Glucose 108 H (74-99) mg/dL Ur Specific [place] >1.050 H (1.001-1.035) Urine Ketones 1+ H (Negative) Urine Blood Small H (Negative) Ur Leukocyte Esterase Small H (Negative) Urine Mucus Rare H (None) /hpf Stool Occult Blood (Negative) 03/21/19 Range/Units 22:40 Neutrophils # (1.3-7.7) k/uL Glucose (74-99) mg/dL Ur Specific [place] (1.001-1.035) Urine Ketones (Negative) Urine Blood (Negative) Ur Leukocyte Esterase (Negative) Urine Mucus (None) /hpf Stool Occult Blood Positive H (Negative) Assessment and Plan Plan: Colitis -Watch off antibiotics for now -Clear liquid diet -GI consult -Stool for WBC and culture Hematochezia -Possibly secondary to hemorrhoids vs colitis -Monitor CBC -GI consulted Pericardial effusion with cardiomegaly -Echocardiogram pending Chronic conditions: HTN, HLD, Hypothyroidism -C/w home meds DVT prophylaxis -SCDs CODE STATUS: Full Code Discussed with: Patient Anticipated discharge date: 1-[address]: Home
[2019-03-22] MEDS: SODIUM CHLORIDE 0.9% 1,000 ML IV SCH (14:39)
--- NOTE | 2019-03-22 18:53 | P.CONS ---
History of Present Illness - Reason for Consult Consult date: 03/22/19 Blood per rectum Requesting physician: Neel Vale - Chief Complaint Diarrhea, vomiting, blood per rectum - History of Present Illness 73-year-old female with multiple medical comorbidities including hypertension, hyperlipidemia, hypothyroidism, diverticulosis and hemorrhoids who presented to the hospital with a constellation of symptoms including abdominal pain, nausea and vomiting and diarrhea. The patient reports symptoms of abdominal pain in the lower abdomen. She describes the pain as cramping and sharp in nature and increasing in intensity. She had associated nausea and vomiting with multiple episodes of diarrhea with some blood noted in the stool. She denies any prior episodes similar to this. She denies any sick contacts, or unusual foods or new medications. Last colonoscopy approximately 5 years ago with the surgical service and normal except for diverticulosis per the patient's history. She presented to the hospital and was found to have WBC 10.6, hemoglobin 15, platelet count 187,000, stool positive for occult blood, INR 0.9, total bilirub in 1, alkaline phosphatase 51, AST 31 and ALT 13. Computed tomography scan of the abdomen was significant for cardiomegaly with a pericardial effusion and wall thickening of the mid transverse colon suggestive of colitis. Review of Systems REVIEW OF SYSTEMS: CONSTITUTIONAL: Denies any fevers, chills, weight change or fatigue. CARDIOVASCULAR: Denies any chest pain, palpitations high or low blood pressures RESPIRATORY: Denies any shortness of breath, hemoptysis or cough. GENITOURINARY: No dysuria or hematuria. MUSCULOSKELETAL: No weakness reported. SKIN: Denies any new rashes or lesions, jaundice or pallor. PSYCHIATRIC: Denies any depression or anxiety. NEUROLOGY: Denies headache, denies any new focal deficits. EARS/NOSE/THROAT: No recent hearing change, congestion, nasal discharge or sore throat. EYES: No pain in eyes, discharge or change in vision. GASTROINTESTINAL: As per HPI. Past Medical History Past Medical History: Hyperlipidemia, Hypertension, Thyroid Disorder History of Any Multi-Drug Resistant Organisms: None Reported Past Surgical History: No Surgical Hx Reported Past Psychological History: No Psychological Hx Reported Smoking Status: Never smoker Past Alcohol Use History: None Reported, Occasional Past Drug Use History: None Reported - Past Family History Mother Family Medical History: Coronary Artery Disease (CAD) Father History Unknown: Yes Medications and Allergies Home Medications Medication Instructions Recorded Confirmed Type Alendronate Sodium [Fosamax] 70 mg PO SA 03/21/19 03/21/19 History Biotin 5 mg PO DAILY 03/21/19 03/21/19 History Levothyroxine Sodium [Synthroid] 50 mcg PO HS 03/21/19 03/21/19 History Lisinopril [Zestril] 2.5 mg PO HS 03/21/19 03/21/19 History Multivitamins, Thera [Multivitamin 1 tab PO DAILY 03/21/19 03/21/19 History (formulary)] Simvastatin [Zocor] 20 mg PO HS 03/21/19 03/21/19 History Vitamin E (Dl,Tocopheryl Acet) 400 unit PO DAILY 03/21/19 03/21/19 History [Vitamin E] Allergies Allergy/AdvReac Type Severity Reaction Status Date / Time Sulfa (Sulfonamide Allergy Rash/Hives Verified 03/21/19 22:04 Antibiotics) Physical Exam Vitals: Vital Signs Temp Pulse Resp BP Pulse Ox 03/22/19 09:00 16 97 03/22/19 08:00 97.6 F 65 16 140/73 97 03/22/19 04:21 98.6 F 72 17 140/73 97 03/22/19 02:17 60 14 03/22/19 01:25 98.0 F 59 L 18 157/71 98 03/21/19 22:30 139/76 03/21/19 22:00 70 16 130/98 97 03/21/19 21:30 67 16 134/70 97 03/21/19 21:00 63 20 135/67 98 03/21/19 20:50 19 135/67 100 03/21/19 20:42 20 03/21/19 20:40 66 16 135/67 99 03/21/19 20:31 16 140/76 100 03/21/19 20:20 140/76 03/21/19 20:10 18 140/76 03/21/19 20:01 61 16 145/72 98 03/21/19 19:50 66 99 03/21/19 19:42 20 03/21/19 19:40 63 99 03/21/19 19:30 61 18 140/80 96 03/21/19 19:27 60 18 97 03/21/19 18:42 20 03/21/19 18:41 98 F 81 16 134/78 97 Intake and Output 03/21/19 03/22/19 03/22/19 22:59 06:59 14:59 Other: Weight 55.338 kg On physical examination, patient appears comfortable in no apparent distress. HEAD: Normocephalic, atraumatic. EYES: No scleral icterus. No conjunctival injection. MOUTH: No lesions, tongue midline. NECK: Trachea midline, no gross abnormalities. CHEST: Clear to auscultation with no wheezing or rhonchi appreciated. HEART: Regular rate and rhythm. ABDOMEN: Soft, mildly tender to palpation. Bowel sounds are positive. No organomegaly. No guarding or rigidity. EXTREMITIES: No pedal edema. SKIN: No rashes, no jaundice. NEUROLOGIC: Alert and oriented x3. No focal deficits. Results CBC & Chem 7: 03/21/19 19:15 03/21/19 19:15 Labs: Abnormal Lab Results - Last 24 Hours (Table) 03/21/19 03/21/19 03/21/19 Range/Units 19:15 19:15 22:40 Neutrophils # 9.1 H (1.3-7.7) k/uL Glucose 108 H (74-99) mg/dL Ur Specific Russell >1.050 H (1.001-1.035) Urine Ketones 1+ H (Negative) Urine Blood Small H (Negative) Ur Leukocyte Esterase Small H (Negative) Urine Mucus Rare H (None) /hpf Stool Occult Blood (Negative) 03/21/19 Range/Units 22:40 Neutrophils # (1.3-7.7) k/uL Glucose (74-99) mg/dL Ur Specific Russell (1.001-1.035) Urine Ketones (Negative) Urine Blood (Negative) Ur Leukocyte Esterase (Negative) Urine Mucus (None) /hpf Stool Occult Blood Positive H (Negative) CT scan - abdomen: report reviewed (Computed tomography scan of the abdomen with findings of cardiomegaly with pleural effusion and wall thickening of the mid transverse colon suggestive of colitis) Assessment and Plan (1) Colitis Narrative/Plan: 73-year-old female who presented with a constellation of symptoms including abdominal pain, diarrhea, blood per rectum and vomiting. Denies any sick contacts, unusual foods, new medications or other triggers. No prior episodes. Last colonoscopy 5 years ago significant for diverticulosis. Computed tomography scan of the abdomen showed thickening of the mid transverse colon suggestive of colitis. Unknown etiology of symptoms, suspicion for infectious versus ischemic etiology of colitis, less likely inflammatory in nature given the acuity of symptoms. Current Visit: Yes Status: Acute Code(s): K52.9 - NONINFECTIVE GASTROENTERITIS AND COLITIS, UNSPECIFIED SNOMED Code(s): 48047753 (2) Rectal bleeding Current Visit: Yes Status: Acute Code(s): K62.5 - HEMORRHAGE OF ANUS AND RECTUM SNOMED Code(s): 48415378 (3) Diarrhea Current Visit: No Status: Acute Code(s): R19.7 - DIARRHEA, UNSPECIFIED SNOMED Code(s): 52271444 (4) Vomiting Current Visit: No Status: Acute Code(s): R11.10 - VOMITING, UNSPECIFIED SNOMED Code(s): 503405989 Plan: Supportive care Okay for liquids Ceftriaxone and Flagyl added Continue fluid hydration and supportive care Continue to monitor stool output No plans for endoscopic evaluation at this time, but would recommend repeat colonoscopy in 4-6 weeks for further evaluation Thank you for allowing us to participate in the care of the patient we will continue to follow
[2019-03-22] MEDS: LISINOPRIL 2.5 MG TAB PO SCH (20:48)
[2019-03-22] MEDS: LEVOTHYROXINE 50 MCG TAB PO SCH (20:48)
[2019-03-22] MEDS: ATORVASTATIN 10 MG TAB PO SCH (20:48)
[2019-03-22] MEDS: metroNIDAZOLE 500 MG TAB PO SCH (20:48)
[2019-03-23 06:27] LABS: Basophils % (A) 0 %; Eosinophils # (A) 0.1 k/uL (0-0.7); Eosinophils % (A) 1 %; HCT 35.2 % (34.0-46.0); HGB 12.1 gm/dL (11.4-16.0); Lymphocytes # (A) 1.4 k/uL (1.0-4.8); Lymphocytes % (A) 16 %; MCH 31.5 pg (25.0-35.0); MCHC 34.4 g/dL (31.0-37.0); MCV 91.4 fL (80.0-100.0); Mean Platelet Volume 7.9; Monocytes # (A) 0.3 k/uL (0-1.0); Monocytes % (A) 4 %; Neutrophils % (A) 78 %; Platelet Count 157 k/uL (150-450); RBC 3.85 m/uL (3.80-5.40); RDW 12.2 % (11.5-15.5)
[2019-03-23 07:21] LABS: African American GFR (CKD) >90 (>60 ml/min/1.73 sqM); Anion Gap 6 mmol/L; Blood Urea Nitrogen 8 mg/dL (7-17); Calcium 7.9 mg/dL (8.4-10.2); Carbon Dioxide 25 mmol/L (22-30); Chloride 108 mmol/L (98-107); Glucose 63 mg/dL (74-99); Magnesium 1.9 mg/dL (1.6-2.3); Non-African American GFR(CKD) 80 (>60 ml/min/1.73 sqM); Phosphorus 2.3 mg/dL (2.5-4.5); Potassium 3.9 mmol/L (3.5-5.1); Sodium 139 mmol/L (137-145)
[2019-03-23] MEDS: metroNIDAZOLE 500 MG TAB PO SCH ×3 (09:37→21:43)
[2019-03-23] MEDS: SODIUM CHLORIDE 0.9% 1,000 ML IV SCH ×2 (09:37→15:33)
--- NOTE | 2019-03-23 11:52 | P.DS ---
Providers Date of admission: 03/21/19 22:04 Expected date of discharge: 03/23/19 Attending physician: Araceli Gonzalez MD Consults: 03/21/19 21:59 Consult Physician Stat Consulting Provider: Case Delatorre Consult Reason/Comments: GI bleed, lower Do you want consulting provider notified?: Yes, Notify in am Primary care physician: Neel Vale [facility] Hospital Course: 73-year-old female with PMH of hypertension, dyslipidemia, hypothyroidism, hemorrhoids presented to the ED for hematochezia, abdominal pain, nausea, vomiting and diarrhea. CT of the abdomen and pelvis showed cardiomegaly with pericardial effusion along with significant wall thickening and surrounding edema in the mid transverse colon likely related to colitis along with mild free fluid in the pelvis with no free air. Patient was admitted for further evaluation and treatment. With regard to her colitis, stool for WBC and culture was ordered. She is on clear liquid diet and transitioned. GI was consulted and recommended addition of ceftriaxone and Flagyl. Echocardiogram was ordered due to the incidental finding of pericardial effusion with cardiomegaly. Otherwise, her home medications were resumed for hypertension, dyslipidemia and hypothyroidism. Patient was seen and examined. No acute events overnight. Had one bowel movement this morning, loose, no blood. She denies any chest pain, shortness of breath or palpitations. No nausea or vomiting. General: [no distress], [appears at stated age] Derm: [warm], [dry] Head: [atraumatic], [normocephalic], [symmetric] Eyes: [EOMI], [no lid lag], [anicteric sclera] Mouth: [no lip lesion], [mucus membranes moist] Cardiovascular: [S1S2 reg], [no murmur], [positive DP pulse bilateral], Lungs: [CTA bilateral], [no rhonchi, no rales] , [no accessory muscle use] Abdominal: [soft], [ nontender to palpation], [positive bowel sounds], [no appreciable organomegaly] Ext: [no gross muscle atrophy], [no edema], [no contractures] Neuro: [no focal neuro deficits] Psych: [Alert], [oriented], [appropriate affect] Colitis with hematochezia Pericardial effusion with cardiomegaly Hypertension Dyslipidemia Hypothyroidism As seen on CT abdomen and pelvis. Plans: Continue Rocephin and Flagyl. Zofran as needed for nausea or vomiting. Continue normal saline at 80 mL per hour. Full liquid diet and advance. Stool for WBC and culture. Follow GI recommendations. Patient is hemodynamically stable. Plans: Follow-up echocardiogram. BP 121/57. Plans: Continue lisinopril. Monitor vitals, adjust medications as necessary. Plans: Continue statin. Plans: Continue Synthroid. [Possible DC home today on oral antibiotics is able to tolerate oral intake. Echocardiogram pending.] Pertinent Studies: CT abdomen and pelvis Patient Condition at Discharge: Stable Plan - Discharge Summary Discharge Rx Participant: No New Discharge Prescriptions: No Action Multivitamins, Thera [Multivitamin (formulary)] 1 tab PO DAILY Biotin 5 mg PO DAILY Vitamin E (Dl,Tocopheryl Acet) [Vitamin E] 400 unit PO DAILY Simvastatin [Zocor] 20 mg PO HS Lisinopril [Zestril] 2.5 mg PO HS Levothyroxine Sodium [Synthroid] 50 mcg PO HS Alendronate Sodium [Fosamax] 70 mg PO SA Discharge Medication List Alendronate Sodium [Fosamax] 70 mg PO SA 03/21/19 [History] Biotin 5 mg PO DAILY 03/21/19 [History] Levothyroxine Sodium [Synthroid] 50 mcg PO HS 03/21/19 [History] Lisinopril [Zestril] 2.5 mg PO HS 03/21/19 [History] Multivitamins, Thera [Multivitamin (formulary)] 1 tab PO DAILY 03/21/19 [History] Simvastatin [Zocor] 20 mg PO HS 03/21/19 [History] Vitamin E (Dl,Tocopheryl Acet) [Vitamin E] 400 unit PO DAILY 03/21/19 [History] Follow up Appointment(s)/Referral(s): Neel Vale MD [Primary Care Provider] - 1-2 days
[2019-03-23] MEDS: LEVOTHYROXINE 50 MCG TAB PO SCH ×2 (21:30→21:46)
[2019-03-23] MEDS: ATORVASTATIN 10 MG TAB PO SCH (21:43)
[2019-03-23] MEDS: LISINOPRIL 2.5 MG TAB PO SCH (21:43)
[2019-03-24] MEDS: SODIUM CHLORIDE 0.9% 1,000 ML IV SCH ×2 (01:47→08:46)
--- NOTE | 2019-03-24 07:21 | ECHOF ---
Referral Reason:pericardial effusion, cardiomegaly MEASUREMENTS -------- HEIGHT: 165.1 cm WEIGHT: 56.2 kg BP: 121/57 RVIDd: 2.8 cm (< 3.3) IVSd: 0.9 cm (0.6 - 1.1) LVIDd: 4.1 cm (3.9 - 5.3) LVPWd: 1.1 cm (0.6 - 1.1) IVSs: 1.3 cm LVIDs: 2.4 cm LVPWs: 1.3 cm LAESV Index (A-L): 27.20 ml/m Ao Diam: 2.7 cm (2.0 - 3.7) AV Cusp: 1.9 cm (1.5 - 2.6) LA Diam: 3.1 cm (2.7 - 3.8) MV EXCURSION: 17.099 mm (> 18.000) MV EF SLOPE: 71 mm/s (70 - 150) EPSS: 0.7 cm MV E Gabriel: 0.83 m/s MV DecT: 243 ms MV A Gabriel: 0.68 m/s MV E/A Ratio: 1.23 RAP: 5.00 mmHg RVSP: 26.01 mmHg FINDINGS -------- Sinus rhythm. This was a technically good study. The left ventricular size is normal. Left ventricular wall thickness is normal. Overall left vent ricular systolic function is normal with, an EF between 55 - 60 %. The diastolic filling pattern is normal for the age of the patient 10.39. The right ventricle is normal in size. Normal LA size by volume 22+/-6 ml/m2. The right atrial size is normal. Interatrial and interventricular septum intact. The aortic valve is trileaflet, and appears structurally normal. No aortic stenosis or regurgitation. The mitral valve is normal. Mild mitral regurgitation is present. Mild tricuspid regurgitation present. There is no evidence of pulmonary hypertension. The right v entricular systolic pressure, as measured by Doppler, is 26.01mmHg. There is no pulmonic regurgitation present. The aortic root size is normal. Normal inferior vena cava with normal inspiratory collapse consistent with estimated right atrial pre ssure of 5 mmHg. There is a moderate, generalized pericardial effusion present. There is no evidence of cardiac tamp onade. CONCLUSIONS -------- 1. Sinus rhythm. 2. This was a technically good study. 3. The left ventricular size is normal. 4. Left ventricular wall thickness is normal. 5. Overall left ventricular systolic function is normal with, an EF between 55 - 60 %. 6. The diastolic filling pattern is normal for the age of the patient 10.39 7. Normal LA size by volume 22+/-6 ml/m2. 8. The aortic valve is trileaflet, and appears structurally normal. No aortic stenosis or regurgitati on. 9. Mild mitral regurgitation is present. 10. Mild tricuspid regurgitation present. 11. There is no evidence of pulmonary hypertension. 12. There is no pulmonic regurgitation present. 13. There is a moderate, generalized pericardial effusion present. 14. There is no evidence of cardiac tamponade. [employer]ORTS MEDICINE TRAINER: Marcelle Moreira RDCS
[2019-03-24] MEDS: metroNIDAZOLE 500 MG TAB PO SCH (08:45)
[2019-03-24 08:50] VITALS: RESP 18
--- NOTE | 2019-03-24 09:48 | P.CRDCN ---
History of Present Illness Consult date: 03/24/19 Requesting physician: Araceli Gonzalez Reason for Consult (text): Pericardial effusion History of present illness: This is a pleasant 73-year-old female who follows with Dr. Salas in the office, she has past medical history significant for hypertension, hyperlipidemia, hypothyroidism, hemorrhoids, initially presented to the hospital for hematochezia, abdominal pain, nausea vomiting and diarrhea. CT of the abdo men and pelvis revealed cardiomegaly with a pericardial effusion along with significant wall thickening and surrounding edema of the mid transverse colon likely related to colitis along with mild free fluid in the pelvis with no free air. Patient was admitted to the hospital for further evaluation and treatment. With regards to her colitis, stool for white blood cell and culture were ordered. She was initially on clear liquid diet and transitioned to regular diet. GI was consulted and recommended the addition of ceftriaxone and Flagyl. Patient also had an echo preformed because of the suggestion of pericardial effusion, the echo showed a normal ejection fraction, mild mitral regurgitation, with a moderate generalized pericardial effusion. The patient also had an echocardiogram with Doppler study performed in February 2018 which at that time revealed a small generalized pericardial effusion with normal left ventricular systolic function. Her EKG shows a normal sinus rhythm with nonspecific ST-T wave changes. Blood pressure 128/80 with a heart rate in the 60s, 94% on room air. White blood cell count 9.0, hemoglobin 12.1, platelet count 157. Sodium 139, potassium 3.9, BUN 8, creatinine 0.7. Magnesium 1.9. Troponin 0.012. Stool for occult blood was positive stool for lactose air and positive. At the time of my examination this morning, the patient feels well, denies any chest discomfort or breathing is stable. She does state that prior to coming to the hospital she did have a bout of bronchitis but otherwise feels well. She is anticipated to be discharged home, but wanted cardiac clearance because of the pericardial effusion. Past Medical History Past Medical History: Hyperlipidemia, Hypertension, Thyroid Disorder History of Any Multi-Drug Resistant Organisms: None Reported Past Surgical History: No Surgical Hx Reported Past Psychological History: No Psychological Hx Reported Smoking Status: Never smoker Past Alcohol Use History: None Reported, Occasional Past Drug Use History: None Reported - Past Family History Mother Family Medical History: Coronary Artery Disease (CAD) Father History Unknown: Yes Medications and Allergies Home Medications Medication Instructions Recorded Confirmed Type Alendronate Sodium [Fosamax] 70 mg PO SA 03/21/19 03/21/19 History Biotin 5 mg PO DAILY 03/21/19 03/21/19 History Levothyroxine Sodium [Synthroid] 50 mcg PO HS 03/21/19 03/21/19 History Lisinopril [Zestril] 2.5 mg PO HS 03/21/19 03/21/19 History Multivitamins, Thera [Multivitamin 1 tab PO DAILY 03/21/19 03/21/19 History (formulary)] Simvastatin [Zocor] 20 mg PO HS 03/21/19 03/21/19 History Vitamin E (Dl,Tocopheryl Acet) 400 unit PO DAILY 03/21/19 03/21/19 History [Vitamin E] Ciprofloxacin/Ciprofloxa HCl 500 mg PO Q24HR #12 tab 03/23/19 Rx [Ciprofloxacin ER] metroNIDAZOLE [Flagyl] 500 mg PO TID #19 tab 03/23/19 Rx Allergies Allergy/AdvReac Type Severity Reaction Status Date / Time Sulfa (Sulfonamide Allergy Rash/Hives Verified 03/21/19 22:04 Antibiotics) Physical Exam Vitals: Vital Signs Temp Pulse Resp BP Pulse Ox 03/24/19 08:49 97.4 F L 69 18 128/87 94 L 03/24/19 04:00 99.1 F 58 L 16 122/66 96 03/23/19 23:26 98.2 F 60 16 103/50 96 03/23/19 21:25 98.7 F 63 16 124/57 98 03/23/19 15:35 97.9 F 65 18 139/71 94 L 03/23/19 11:50 97.9 F 60 18 128/68 96 Intake and Output 03/23/19 03/24/19 03/24/19 22:59 06:59 14:59 Intake Total 240 200 180 Balance 240 200 180 Intake: Oral 240 200 180 Other: # Voids 3 2 Weight 57.3 kg PHYSICAL EXAMINATION: GENERAL: 73-year-old female in no acute distress at the time of my examination HEENT: Head is atraumatic, normocephalic. Pupils equal, round. Sclera anicteric. Conjunctiva are clear. Mucous membranes of the mouth are moist. Neck is supple. There is no elevated jugular venous pressure. No carotid bruit is heard. HEART EXAMINATION: Heart S1, S2 normal. No murmur or gallop heard. CHEST EXAMINATION: Lungs are clear to auscultation and precussion. No chest wall tenderness is noted on palpation or with deep breathing. ABDOMEN: Soft, nontender. Bowel sounds are heard. No organomegaly noted. EXTREMITIES: 2+ peripheral pulses with no evidence of peripheral edema and no calf tenderness noted. NEUROLOGIC patient is awake, alert and oriented 3 . . Results 03/23/19 05:36 03/23/19 05:36 Current Medications Generic Name Dose Route Start Last Admin Trade Name Freq PRN Reason Stop Dose Admin Atorvastatin Calcium 10 mg 03/22/19 21:00 03/23/19 21:43 Lipitor PO 10 mg HS SIN Administration Sodium Chloride 1,000 mls @ 80 mls/hr 03/21/19 22:00 03/24/19 08:46 Saline 0.9% IV 80 mls/hr .[id number] SIN Administration Ceftriaxone Sodium 1 gm/ 50 mls @ 100 mls/hr 03/23/19 09:00 03/24/19 08:45 Sodium Chloride IVPB 100 mls/hr Q24HR SIN Administration Ketorolac Tromethamine 30 mg 03/22/19 09:37 Toradol IVP 03/26/19 09:37 Q6HR PRN Analgesia Levothyroxine Sodium 50 mcg 03/22/19 21:00 03/23/19 21:30 Synthroid PO 50 mcg HS SIN Administration Lisinopril 2.5 mg 03/22/19 21:00 03/23/19 21:43 Zestril PO 2.5 mg HS SIN Administration Metronidazole 500 mg 03/22/19 22:00 03/24/19 08:45 Flagyl PO 500 mg TID SIN Administration Naloxone HCl 0.2 mg 03/21/19 21:59 Narcan IV Q2M PRN Opioid Reversal Ondansetron HCl 4 mg 03/22/19 09:38 03/23/19 07:03 Zofran IVP 4 mg Q6HR PRN Administration Nausea And Vomiting Intake and Output 03/23/19 03/24/19 03/24/19 22:59 06:59 14:59 Intake Total 240 200 180 Balance 240 200 180 Intake: Oral 240 200 180 Other: # Voids 3 2 Weight 57.3 kg 03/23/19 05:36 03/23/19 05:36 EKG Interpretations (text) EKG shows a normal sinus rhythm with no acute changes. Assessment and Plan Plan: Assessment and plan #1 colitis #2 hematochezia #3 small to moderate pericardial effusion #4 hypertension #5 hyperlipidemia #6 hypothyroidism Plan We will review the patient's prior echo that she had done last year as well as her current echo to compare the pericardial effusion. Obtain sed rate and CRP. Patient also had an echo performed in the office which we will review. Further recommendations to follow. DNP note has been reviewed, I agree with a documented findings and plan of care. Patient was seen and examined.
--- NOTE | 2019-03-24 10:50 | P.PN ---
Subjective Progress Note Date: 03/24/19 Principal diagnosis: Pericardial effusion Patient was seen and examined. No acute events overnight. Patient denies any diarrhea, abdominal pain, hematochezia. No bowel movement since the sample couple of days ago. She denies any chest pain, shortness breath or palpitations. No dizziness. No nausea or vomiting. No fever or chills. Tolerating diet well. Objective - Vital Signs Vital signs: Vital Signs Temp 97.4 F L 03/24/19 08:49 Pulse 69 03/24/19 08:49 Resp 18 03/24/19 08:49 BP 128/87 03/24/19 08:49 Pulse Ox 94 L 03/24/19 08:49 Intake & Output 03/23/19 03/24/19 03/24/19 18:59 06:59 18:59 Intake Total 480 200 180 Balance 480 200 180 Weight 57.3 kg Intake: Oral 480 200 180 Other: # Voids 3 2 # Bowel Movements 1 - Exam General: [no distress], [appears at stated age] Derm: [warm], [dry] Head: [atraumatic], [normocephalic], [symmetric] Eyes: [EOMI], [no lid lag], [anicteric sclera] Mouth: [no lip lesion], [mucus membranes moist] Cardiovascular: [S1S2 reg], [no murmur], [positive DP pulse bilateral], Lungs: [CTA bilateral], [no rhonchi, no rales] , [no accessory muscle use] Abdominal: [soft], [ nontender to palpation], [positive bowel sounds], [no appreciable organomegaly] Ext: [no gross muscle atrophy], [no edema], [no contractures] Neuro: [no focal neuro deficits] Psych: [Alert], [oriented], [appropriate affect] - Labs CBC & Chem 7: 03/23/19 05:36 03/23/19 05:36 Labs: Abnormal Lab Results - Last 24 Hours (Table) 03/23/19 Range/Units 08:30 Stool Lactoferrin POSITIVE H (NEGATIVE) Microbiology - Last 24 Hours (Table) 03/23/19 08:30 Stool Culture - Preliminary Stool Assessment and Plan Assessment: Colitis with hematochezia Pericardial effusion with cardiomegaly Hypertension Dyslipidemia Hypothyroidism As seen on CT abdomen and pelvis. Stool culture preliminary negative. Plans: Patient with like to not take antibiotics, she is hemodynamically stable and I believe that antibiotics can be discontinued at this time. Follow GI recommendations. Patient is hemodynamically stable. Echocardiogram shows moderate pleural effusion. Plans: Follow ESR and CRP. Follow cardiology consultation. BP 128/87. Plans: Continue lisinopril. Monitor vitals, adjust medications as necessary. Plans: Continue statin. Plans: Continue Synthroid. [DC home today. Needs colonoscopy after resolution of colitis.]
[2019-03-24 11:15] VITALS: BP 146/69; PULSE 55; TEMP 97.9
== END 2019-03-24 13:35 | disposition home or self-care (01) ==
LOC: EC 18:13 → UNDOADMIN 22:04 → INTOOBSV 22:04 → 3SCARD 22:04 → UNDODISIN 03-24 13:35
PROVIDERS: ADMIT Internal Medicine; ATTEND Internal Medicine
DX: K52.9 Noninfective gastroenteritis and colitis, unspecified (principal); K92.1 Melena; I31.3 Pericardial effusion (noninflammatory); J90 Pleural effusion, not elsewhere classified; E03.9 Hypothyroidism, unspecified; E78.5 Hyperlipidemia, unspecified; K57.90 Diverticulosis of intestine, part unspecified, without perforation or abscess without bleeding; K64.9 Unspecified hemorrhoids; I11.9 Hypertensive heart disease without heart failure; Z79.83 Long term (current) use of bisphosphonates; Z79.890 Hormone replacement therapy; Z79.899 Other long term (current) drug therapy; Z82.49 Family history of ischemic heart disease and other diseases of the circulatory system; Z88.2 Allergy status to sulfonamides
CPT/HCPCS: 96361 ×4; 96366; 96375 ×2; 96368; 96365; 99285; 36415; 93005; 93306; 80053; 80048; 85652; 83605; 83690; 83735; 84100; 84484; 85025 ×2; 85610; 85730; 86140; 82272; 81001; 87045; 83630; 87046; 87502; 74177; G0378 ×4; J2405; J0696 ×3; J2270; Q9967

== ENCOUNTER → 2019-04-13 | Outpatient (CLI) | payer MEDICARE ==
--- NOTE | 2019-04-14 09:02 | MM ---
Reason for exam: screening (asymptomatic). Last mammogram was performed 1 year ago. History: Patient is postmenopausal and has history of other cancer at age 58. Took estrogen for 2 years 10 months beginning at age 59. Took progesterone for 2 years 10 months beginning at age 59. Physical Findings: A clinical breast exam by your physician is recommended on an annual basis and results should be correlated with mammographic findings. MG 3D Screening Mammo W/Cad Bilateral CC and MLO view(s) were taken. Prior study comparison: April 09, 2018, bilateral MG 3d screening mammo w/cad. April 08, 2017, bilateral MG 3d screening mammo w/cad. The breast tissue is heterogeneously dense. This may lower the sensitivity of mammography. There are benign appearing vascular calcifications bilaterally. There is no discrete abnormality. ASSESSMENT: Benign, BI-RAD 2 RECOMMENDATION: Routine screening mammogram of both breasts in 1 year.
== END | disposition home or self-care (01) ==
LOC: RADMAMWWP 11:38
PROVIDERS: ATTEND Obstetrics & Gynecology
DX: Z12.31 Encounter for screening mammogram for malignant neoplasm of breast (principal)
CPT/HCPCS: 77063; 77067

== ENCOUNTER 2019-04-29 11:05 | Day surgery (SDC) | payer MEDICARE ==
[2019-04-27 13:13] VITALS: BMI 20.9
[~2019-04-29 11:05] MED LIST: LACTATED RINGERS 1,000 ML IV SCH; LIDOCAINE 1% 20 ML VIAL (10MG/ML) FOR IV START INTRADERMA PRN
[2019-04-29 11:37] VITALS: TEMP 98.5
[2019-04-29] MEDS ORDERED: PROPOFOL 10 MG/ML 20 ML VIAL IV ONE (12:01)
[2019-04-29] MEDS ORDERED: LIDOCAINE 1% INJ 10MG/ML (20 ML MDV) ONE (12:01)
[2019-04-29] MEDS ORDERED: GLYCOPYRROLATE 0.2 MG/ML 2 ML VIAL ONE (12:01)
--- NOTE | 2019-04-29 12:21 | P.PCN ---
Date of Procedure: 04/29/19 Procedure(s) Performed: BRIEF HISTORY: Patient is a 73-year-old pleasant female scheduled for an elective colonoscopy as a part of evaluation of recent episode of lower abdominal pain followed by rectal bleeding that happened in February 2019. Symptoms lasted for a week and resolved. CT of abdomen done at that time showed colitis involving the transverse colon. In the meantime she is doing much better. No further episodes of bleeding. PROCEDURE PERFORMED: Colonoscopy. PREOPERATIVE DIAGNOSIS: Recent episode of lower abdominal pain and rectal bleeding. IV sedation per Anesthesia. PROCEDURE: After informed consent was obtained, the patient, was brought into the endoscopy unit. IV sedation was administered by Anesthesia under continuous monitoring. Digital rectal examination was normal. Initially the Olympus CF-160 flexible video colonoscope was then inserted in the rectum, gradually advanced into the cecum without any difficulty. Careful examination was performed as the scope was gradually being withdrawn. Ileocecal valve and the appendiceal orifice were visualized and appeared normal. Prep was excellent. Mucosa of the cecum, ascending colon, transverse colon, descending colon, sigmoid colon, and rectum appeared normal. Scattered sigmoid diverticulosis seen. Retroflexion was performed in the rectum and no lesions were seen. The patient tolerated the procedure well. IMPRESSION: Normal-appearing colon from rectum to cecum with no evidence of colitis or colorectal neoplasia. Scattered sigmoid diverticulosis. RECOMMENDATIONS: Findings of this examination were discussed with the patient rest of family. She was advised to be a high-fiber diet. She was advised to follow up in office if she has any symptoms
[2019-04-29 12:42] VITALS: BP 151/72; PULSE 72; RESP 18
== END 2019-04-29 13:05 | disposition home or self-care (01) ==
LOC: ORWHC2ENDO 11:05
PROVIDERS: ATTEND Internal Medicine Gastroenterology
DX: K57.30 Diverticulosis of large intestine without perforation or abscess without bleeding (principal); K52.9 Noninfective gastroenteritis and colitis, unspecified; I10 Essential (primary) hypertension; E78.5 Hyperlipidemia, unspecified; E07.9 Disorder of thyroid, unspecified; Z88.2 Allergy status to sulfonamides; Z79.890 Hormone replacement therapy; Z79.899 Other long term (current) drug therapy
CPT/HCPCS: 45378; J2001; J2704

== ENCOUNTER → 2020-04-13 | Outpatient (CLI) | payer MEDICARE ==
--- NOTE | 2020-04-13 15:15 | BD ---
EXAMINATION TYPE: Axial Bone Density DATE OF EXAM: 04/13/2020 COMPARISON: 04.09.2018 CLINICAL HISTORY: 74 YR OLD FEMALE.....ICD-10 CODE: M81.0 KNOWN OSTEOPOROSIS Height: 63.2 Weight: 120 FRAX RISK QUESTIONS: NOTHING TO NOTE HERE RISK FACTORS HISTORY OF: Diet low in dairy products/other sources of calcium: MAYBE A BIT Postmenopausal woman: YES, AT 50 YRS OLD Take estrogen and/or progesterone medications: YES, FOR FEW YRS IN THE PAST, ESTRADIOL, FOR UTIs Hyperparathyroidism: NO Adrenal Insufficiency: NO MEDICATIONS: Thyroid Medications: YES, SYNTHROID FOR ABOUT 33 YRS Osteoporosis Medications: YES, FOSAMAX 1 1/2 TO 2 YRS Additional Medications: BP MEDS, XANAX, REFLUX MEDS, STATIN FOR CHOLESTEROL, VIT D AND CALCIUM, VIT D 3 Additional History: HYPERTENSION, REFLUX, CHOLESTEROL EXAM MEASUREMENTS: Bone mineral densitometry was performed using the GOOD System. Bone mineral density as measured about the Lumbar spine is: ----- L1-L4(G/cm2): 1.282 T Score Values are as follows: ----- L1: -1.0 ----- L2: 1.2 ----- L3: 1.3 ----- L4: 1.7 ----- L1-L4: 0.9 Bone mineral density has: Increased 8.1% SINCE LAST STUDY OF 04.09.2018 Bone mineral density about the R hip (g/cm2): 0.695 Bone mineral density about the L hip (g/cm2): 0.803 T Score values are as follows: -----R Neck: -1.8 -----L Neck: -0.9 -----R Total: -2.5 -----L Total: -1.6 Bone mineral density has: Increased 3.7% SINCE LAST STUDYOF 04.09.2018 FRAX%s: THERE IS A 38.4% CHANCE FOR A MAJOR OSTEOPOROTIC FX AND A 25.4% FOR HIP FX......PROBABILIT Y FOR FX IN 10 YRS TIME IMPRESSION: Osteoporosis (T Score less than -2.5). There is increased fracture risk and therapy is usually indicated based on age. Re-Screen 1-2 years. NOTE: T-SCORE=SD OF THE YOUNG ADULT MEAN.
== END | disposition home or self-care (01) ==
LOC: RADBDWWP 12:39
PROVIDERS: ATTEND Obstetrics & Gynecology
DX: M81.0 Age-related osteoporosis without current pathological fracture (principal)
CPT/HCPCS: 77080

== ENCOUNTER 2020-05-18 21:38 | Emergency (ER) | payer MEDICARE ==
[2020-05-18 21:46] VITALS: PULSE 63
[2020-05-18] MEDS ORDERED: ONDANSETRON ODT 4 MG TAB PO STA (22:03)
[2020-05-18] MEDS ORDERED: HYDROcodone/APAP 5-325MG 1 EACH TAB PO STA (22:03)
--- NOTE | 2020-05-18 22:05 | ED ---
Extremity Problem HPI - General Chief complaint: Extremity Problem,Nontraumatic Stated complaint: Hip Pain Time Seen by Provider: 05/18/20 21:56 Source: patient, RN notes reviewed Mode of arrival: ambulatory Limitations: no limitations - History of Present Illness Initial comments: This a 74-year-old female presents emergency Department with chief complaint of left hip pain. Patient states she's been having some on-and-off issues for a few weeks states that she had x-rays by Dr. Nolen showed near [id number] on the left hip. Patient did have recent bone density scan which showed that she was a higher risk for fracture. Patient states that she has an appointment this Saturday but states that she's been up since 3 AM with persistent pain. Patient did take some Motrin earlier which she states she is due for her next dose but states that did not help much for pain. She states the pain is intense causing her nausea denies any abdominal pain, fever, chills, chest pain shortness breath patient states that she hasn't get much relief with sitting standing or laying. Patient denies any recent trauma patient does have known back issues but states this is not her back. She doesn't at that she has a bad right knee in which she's been receiving cortisone injections for. - Related Data Home Medications Medication Instructions Recorded Confirmed Alendronate Sodium [Fosamax] 70 mg PO SA 03/21/19 04/27/19 Biotin 5 mg PO DAILY 03/21/19 04/27/19 Levothyroxine Sodium [Synthroid] 50 mcg PO MOTUWETHFRSA 03/21/19 04/27/19 Simvastatin [Zocor] 20 mg PO HS 03/21/19 04/27/19 lisinopriL [Zestril] 2.5 mg PO HS 03/21/19 04/27/19 Calcium Carbonate [Calcium] 1,000 mg PO DAILY 04/27/19 04/27/19 Ferrous Sulfate [Feosol] 65 mg PO DAILY 04/27/19 04/27/19 Levothyroxine Sodium [Synthroid] 75 mcg PO MIRANDA 04/27/19 04/27/19 Previous Rx's Medication Instructions Recorded Cephalexin [Keflex] 500 mg PO Q6HR #28 cap 05/14/19 HYDROcodone/APAP 5-325MG [[place] 5] 1 each PO Q6HR PRN #12 tab 05/18/20 Allergies Allergy/AdvReac Type Severity Reaction Status Date / Time Sulfa (Sulfonamide Allergy Rash/Hives Verified 05/18/20 21:46 Antibiotics) Review of Systems ROS Statement: Those systems with pertinent positive or pertinent negative responses have been documented in the HPI. ROS Other: All systems not noted in ROS Statement are negative. Past Medical History Past Medical History: Hyperlipidemia, Hypertension, Thyroid Disorder Additional Past Medical History / Comment(s): recently in hospital for colitis, vomiting, diarrhea, rectal bleeding, has chronic stable pericardial effusion per pt., History of Any Multi-Drug Resistant Organisms: None Reported Past Surgical History: No Surgical Hx Reported Additional Past Surgical History / Comment(s): colonoscopy Past Anesthesia/Blood Transfusion Reactions: No Reported Reaction Past Psychological History: Anxiety Smoking Status: Never smoker Past Alcohol Use History: Occasional Past Drug Use History: None Reported - Past Family History Mother Family Medical History: Coronary Artery Disease (CAD) Father History Unknown: Yes General Exam Limitations: no limitations General appearance: alert, in no apparent distress Head exam: Present: atraumatic, normocephalic, normal inspection Neck exam: Present: normal inspection. Absent: tenderness, meningismus, lymphadenopathy Respiratory exam: Present: normal lung sounds bilaterally. Absent: respiratory distress, wheezes, rales, rhonchi, stridor Cardiovascular Exam: Present: regular rate, normal rhythm, normal heart sounds. Absent: systolic murmur, diastolic murmur, rubs, gallop, clicks GI/Abdominal exam: Present: soft, normal bowel sounds. Absent: distended, tenderness, guarding, rebound, rigid Extremities exam: Present: other (Right hip there is pain with active and passive range of motion, neurovascular intact there is no redness swelling or discoloration to right hip or right leg there is known varicose veins noted.) Back exam: Present: full ROM. Absent: tenderness Neurological exam: Present: alert, oriented X3, reflexes normal. Absent: motor sensory deficit Skin exam: Present: warm, dry, intact, normal color. Absent: rash Course Vital Signs 05/18/20 21:42 Temperature 98.1 F Pulse Rate 63 Respiratory 18 Rate Blood Pressure 148/83 O2 Sat by Pulse 97 Oximetry Medical Decision Making - Medical Decision Making X-ray and CT reviewed there are no acute fracture patient has severe arthritis and degenerative changes. She has neurovascular intact there is no signs of infection. Patient has appointment on Saturday with orthopedics. Patient provided pain relief comfortable with discharge and return parameters were discussed. Disposition Clinical Impression: Left hip pain, Osteoarthritis of left hip Disposition: HOME SELF-CARE Condition: Stable Instructions (If sedation given, give patient instructions): Hip Pain (ED) Additional Instructions: Please return to the Emergency Department if symptoms worsen or any other concerns. Prescriptions: HYDROcodone/APAP 5-325MG [[place] 5] 1 each PO Q6HR PRN #12 tab PRN Reason: Pain Is patient prescribed a controlled substance at d/c from ED?: Yes When asked, does pt state using other controlled substances?: No If prescribed controlled substance>3 days was MAPS reviewed?: Prescribed <3 Days If opioid is for acute pain is fill amount 7 days or less?: Yes If Rx opioid, was Start Talking consent form obtained?: Yes Referrals: Pamella Jackson MD [Primary Care Provider] - 1-2 days Greg Nolen DO [Doctor of Osteopathic Medicine] - 1-2 days Time of Disposition: 23:39
--- NOTE | 2020-05-18 22:34 | XR ---
EXAMINATION TYPE: XR Hip LT and AP Pelvis DATE OF EXAM: 05/18/2020 COMPARISON: NONE HISTORY: Left hip pain TECHNIQUE: 3 views FINDINGS: The pelvic ring is intact. There is hip joint space narrowing with spurring of the acetabul a. Sacroiliac joints are intact. I see no fracture. IMPRESSION: Moderately severe osteoarthritis in the left hip joint. No fracture seen.
[2020-05-18] MEDS ORDERED: HYDROmorphone 1 MG/ML 1 ML SYRINGE IM STA (23:07)
--- NOTE | 2020-05-18 23:20 | CT ---
EXAMINATION TYPE: CT hip LT wo con DATE OF EXAM: 05/18/2020 COMPARISON: None HISTORY: left hip pain CT DLP: 393 mGycm Automated exposure control for dose reduction was used. Images were obtained from the level of the mid ileum to the mid shaft femur without contrast. There is hypertrophic spurring on the femoral head and the acetabulum. I see no fracture nor dislocat ion. There are small degenerative cysts in the acetabulum. I see no evidence of a soft tissue mass. T he left sacroiliac joint is intact. Left ileum appears intact. There is no evidence of femoral fractu re. The visualized pelvic soft tissues appear intact. There is no free fluid in the pelvis. There is no s ign of a pelvic mass. IMPRESSION: Moderate hypertrophic osteoarthritis in the left hip joint. No fracture seen.
[2020-05-18] MEDS ORDERED: predniSONE 50 MG TAB PO STA (23:35)
[2020-05-18] MEDS ORDERED: ACET/COD 300 MG/30 MG STARTER PACK 6 TAB BTL PO STA (23:35)
[2020-05-18] MEDS ORDERED: ONDANSETRON 4 MG ODT STARTER PACK 2 TAB BTL PO STA (23:56)
[2020-05-18 23:57] VITALS: BP 106/78; RESP 17; TEMP 98.8
== END 2020-05-18 23:56 | disposition home or self-care (01) ==
LOC: EC 21:38
DX: M16.12 Unilateral primary osteoarthritis, left hip (principal); I10 Essential (primary) hypertension; E78.5 Hyperlipidemia, unspecified; E07.9 Disorder of thyroid, unspecified; Z79.890 Hormone replacement therapy; Z79.899 Other long term (current) drug therapy; Z88.2 Allergy status to sulfonamides
CPT/HCPCS: 73502; 73700; 99284; 96372; J1170; J7512

== ENCOUNTER → 2020-05-30 | Outpatient (CLI) | payer MEDICARE ==
[2020-05-30 11:03] LABS: Calcium 9.4 mg/dL (8.4-10.2); Potassium 4.1 mmol/L (3.5-5.1); Total Bilirubin 0.8 mg/dL (0.2-1.3); Total Protein 6.8 g/dL (6.3-8.2)
[2020-05-30 11:05] LABS: Basophils % (A) 0 %; Eosinophils # (A) 0.1 k/uL (0-0.7); Eosinophils % (A) 1 %; HCT 45.5 % (34.0-46.0); Lymphocytes # (A) 2.1 k/uL (1.0-4.8); Lymphocytes % (A) 28 %; MCH 30.3 pg (25.0-35.0); MCHC 33.1 g/dL (31.0-37.0); MCV 91.5 fL (80.0-100.0); Mean Platelet Volume 7.3; Monocytes # (A) 0.5 k/uL (0-1.0); Monocytes % (A) 7 %; Neutrophils # (A) 4.6 k/uL (1.3-7.7); Neutrophils % (A) 62 %; Platelet Count 228 k/uL (150-450); RBC 4.97 m/uL (3.80-5.40); RDW 12.3 % (11.5-15.5); WBC 7.3 k/uL (3.8-10.6)
[2020-05-30 11:26] LABS: INR 0.9 (<1.2); Partial Thromboplastin Time 23.6 sec (22.0-30.0); Prothrombin Time 10.2 sec (9.0-12.0)
[2020-05-30 11:43] LABS: Appearance,Urine Clear (Clear); Bacteria,Urine Moderate /hpf; Bilirubin,Urine Negative (Negative); Blood,Urine Small (Negative); Color,Urine Light Yellow; Glucose,Urine (UA) Negative (Negative); Ketones,Urine Negative (Negative); Leukocyte Esterase,Urine Moderate (Negative); Mucus,Urine Rare /hpf; Nitrite,Urine Negative (Negative); Protein,Urine Negative (Negative); RBC,Urine 3 /hpf (0-5); Specific Gravity,Urine 1.007 (1.001-1.035); Squamous Epithelial Cell,Urine 5 /hpf (0-4); Urobilinogen,Urine <2.0 mg/dL (<2.0); WBC,Urine 9 /hpf (0-5)
== END | disposition home or self-care (01) ==
LOC: LABPAT 09:29
PROVIDERS: ATTEND Orthopaedic Surgery
DX: Z01.818 Encounter for other preprocedural examination (principal); Z01.812 Encounter for preprocedural laboratory examination; Z01.810 Encounter for preprocedural cardiovascular examination
CPT/HCPCS: 36415; 80053; 81001; 85025; 85610; 85730; 86850; 86900; 86901; 87070; 93005

== ENCOUNTER → 2020-06-01 | Outpatient (CLI) | payer MEDICARE ==
--- NOTE | 2020-06-02 13:44 | MM ---
Reason for exam: screening (asymptomatic). Last mammogram was performed 1 year and 2 months ago. History: Patient is postmenopausal and has history of other cancer at age 58. Took estrogen for 2 years 10 months beginning at age 59. Took progesterone for 2 years 10 months beginning at age 59. Physical Findings: A clinical breast exam by your physician is recommended on an annual basis and results should be correlated with mammographic findings. MG 3D Screening Mammo W/Cad Bilateral CC and MLO view(s) were taken. Prior study comparison: April 13, 2019, bilateral MG 3d screening mammo w/cad. April 09, 2018, bilateral MG 3d screening mammo w/cad. There are scattered fibroglandular densities. Benign appearing bilateral calcifications. No significant changes when compared with prior studies. ASSESSMENT: Benign, BI-RAD 2 RECOMMENDATION: Routine screening mammogram of both breasts in 1 year.
== END | disposition home or self-care (01) ==
LOC: RADMAMWWP 11:13
PROVIDERS: ATTEND Obstetrics & Gynecology
DX: Z12.31 Encounter for screening mammogram for malignant neoplasm of breast (principal)
CPT/HCPCS: 77063; 77067

== ENCOUNTER 2020-06-07 12:07 | Day surgery (SDC) | payer MEDICARE ==
[2020-06-01 09:33] VITALS: BMI 20.5
[~2020-06-07 12:07] MED LIST changes: +ACETAMINOPHEN TAB 500 MG TAB PO PRN; +DEXAMETHASONE SOD PHOSPHATE 4 MG/ML 1 ML VIAL IV ONE; +GABAPENTIN 300 MG CAP PO PRN; +HYDROmorphone 0.5 MG/0.5 ML SYRINGE IVP PRN; -LACTATED RINGERS 1,000 ML IV SCH; +LIDOCAINE 1% (10MG/ML) FOR IV START INTRADERMA PRN; -LIDOCAINE 1% 20 ML VIAL (10MG/ML) FOR IV START INTRADERMA PRN; +MELOXICAM 7.5 MG TAB PO PRN; +MIDAZOLAM 2 MG/2 ML VIAL IV PRN; +ONDANSETRON 4 MG/2 ML VIAL IVP ONE; +TRANEXAMIC ACID 1,000 MG in SODIUM CHLORIDE 0.9% 100 ML IVPB PRN
[2020-06-07] MEDS: LACTATED RINGERS 1,000 ML IV SCH (13:00)
[2020-06-07] MEDS ORDERED: ONDANSETRON 4 MG/2 ML VIAL IVP PRN (13:28)
[2020-06-07] MEDS ORDERED: HYDROcodone/APAP 5-325MG 1 EACH TAB PO PRN (13:28)
[2020-06-07] MEDS ORDERED: HYDROmorphone 0.5 MG/0.5 ML SYRINGE IVP PRN ×2 (13:28)
[2020-06-07] MEDS ORDERED: HYDROmorphone 0.2 MG/1 ML SYRINGE IVP PRN (13:28)
[2020-06-07] MEDS ORDERED: MAGNESIUM HYDROXIDE 2,400 MG/10 ML CUP PO PRN (13:28)
[2020-06-07] MEDS ORDERED: NALOXONE 0.4 MG/ML 1 ML VIAL IV PRN (13:28)
[2020-06-07] MEDS ORDERED: TRANEXAMIC ACID 1,000 MG/10 ML VIAL ONE (13:29)
[2020-06-07] MEDS ORDERED: fentaNYL (PF) 50 MCG/ML 2 ML AMP ONE (13:29)
[2020-06-07] MEDS ORDERED: HEPARIN SODIUM,PORCINE 10,000 UNIT/ML 1 ML VIAL ONE (13:29)
[2020-06-07] MEDS ORDERED: SODIUM CHLORIDE 0.9% IRRIG 1,000 ML BTL IRRIGATION ONE (13:29)
[2020-06-07] MEDS ORDERED: PROPOFOL 10 MG/ML 20 ML VIAL IV ONE (13:29)
[2020-06-07] MEDS ORDERED: ceFAZolin 3,000 MG in SODIUM CHLORIDE 0.9% IRRIGATIO 3,000 ML IRRIGATION ONE (13:29)
[2020-06-07] MEDS ORDERED: SODIUM CHLORIDE 0.9% 100 ML BAG ONE (13:29)
[2020-06-07] MEDS ORDERED: MIDAZOLAM 2 MG/2 ML VIAL ONE (13:29)
[2020-06-07] MEDS: ROPIVACAINE/EPI/CLONIDINE/KET 50 ML SYRINGE MISCELLANE PRN ×2 (13:56→14:32)
[2020-06-07] MEDS ORDERED: LACTATED RINGERS 1,000 ML IV ONE (14:40)
--- NOTE | 2020-06-07 14:40 | P.OP ---
Date of Procedure: 06/07/20 Preoperative Diagnosis: Severe osteoarthritis left hip Postoperative Diagnosis: Severe osteoarthritis left hip Procedure(s) Performed: Left total of arthroplasty with a direct anterior approach Implants: [employer] Polarstem standard size 3 [employer] R3, 3 hole hemispherical acetabular shell, 52 mm [employer] Reflection 6.5 mm cancellus screw, 20 mm 2 [employer] R3, XLPE 20 acetabular liner [employer] Oxinium femoral head 36 m, -3 All components were press-fit. The articulation is Oxinium on polyethylene. Anesthesia: spinal Surgeon: Greg Nolen Spinner Iron #1: Carly Gonsalez Estimated Blood Loss (ml): 350 (142 mL returned with Cell Saver) Pathology: other (Femoral head) Condition: stable Disposition: PACU Indications for Procedure: After failure of conservative treatment we discussed the surgical and nonsurgical treatment options at length. Patient wishes to proceed with a total hip arthroplasty with a direct anterior approach. Complications specific to this procedure were discussed at length, including but not limited to infection, leg length discrepancy, dislocation, nerve injury, and fracture. Covid-19 was also discussed at length with the patient, and they are aware of the current policies and procedures. The patient was given the option of delaying surgery, but they elect to proceed knowing these risks. Patient is aware of all these complications and informed consent was obtained Operative Findings: The operative findings are consistent with severe osteoarthritis of the left hip Description of Procedure: Patient was seen and evaluated in the preoperative area and the consent was reviewed. The operative site was marked with a skin marker. The patient was then brought to the operating room and given preoperative antibiotics intravenously. 1 g of Tranexamic acid was also given intravenously. A spinal anesthetic was administered by the anesthesia department. The patient was then placed on the [place] table with the bony prominences well-padded. The hip area was then prepped with a ChloraPrep solution and draped in the usual sterile fashion. A universal timeout was then performed, which confirmed the patient's name, surgical site, ALLERGIES, and procedure being performed on the consent. Next the incision site was located at 1 cm distal to the anterior superior iliac spine on the flexion crease of the left hip. The skin and subcutaneous tissues were sharply incised. Incision was carefully dissected down to the fascia overlying the tensor fascia jimmy muscle. This fascia was then incised in line with the incision. Care was taken to stay laterally in order to avoid injuring the lateral femoral cutaneous nerve. Next, using blunt finger dissection, the tensor fascia jimmy muscle was dissected off its investing fascia. The muscle was then carefully retracted laterally with a cobra retractor over the lateral neck of the femur. Next, the circumflex vessels were identified and cauterized using the AquaMantis device. The anterior hip capsule was then exposed. The capsule was then opened and an inverted T fashion. Cobra retractors were then placed intracapsularly. The retractors were maintained intracapsular throughout the procedure. The proximal femur was then visualized. A small amount of traction was placed on the leg. The femoral neck was then osteotomized appropriate level above the lesser trochanter. A small wedge of bone was then removed from the remaining femoral head. Next, using a corkscrew the femoral head was removed from the acetabulum. On gross visual inspection, the femoral head had complete loss of articular cartilage and multiple periarticular osteophytes. The femoral head was then measured. Attention was then turned to the acetabulum. The acetabulum was exposed and any remaining labrum was excised. Sequential reaming of the acetabulum was performed using fluoroscopic guidance until there was a good bed of bleeding cancellus bone. When the appropriate size was reached, a trial was then placed. The position and fit of the trial was checked with fluoroscopy. The trial was then removed. Then, using fluoroscopic guidance, the final implant was impacted at 20 of anteversion and 40 of abduction, and fully seated in the acetabulum. 2 screws were then placed in the acetabulum. Again fluoroscopy was used to check position of the screws. Next, the liner was then impacted, with a 20 elevated liner located in the anterior superior quadrant. Component locking was confirmed. Attention was then directed to the femur. With the aid of the [place] table, the femur was externally rotated to approximately 130, extended, and adducted under the opposite leg. A side hook was then placed under the proximal femur, and the side hook elevator was used to elevate the proximal femur while releasing the capsule. Retractors were then placed. A capsular release was performed, as well as a release of the conjoined tendon, which afforded excellent visualization of the proximal femur. Next, a box osteotome was used to lateralize the proximal femur. A merchandise worker was then used to locate the femoral canal. Sequential broaching was then performed with appropriate size which afforded excellent fixation in the proximal femur. A trial was then placed with appropriate head and neck, and the hip was gently reduced with the aid of the [place] table. Fluoroscopy was then used to check position of the components, as well as to ensure equal leg lengths. The hip was then gently dislocated and the trials were then removed. Final implants were then impacted and the hip was again reduced. Final fluoroscopic x-rays confirmed that the components were in anatomic position, as well as equal leg lengths. The hip was also taken through range of motion, and found to be stable. The hip was then copiously irrigated with antibiotic solution with pulsatile lavage. The hip was then irrigated with Irrisept solution. The soft tissues were then injected with a ropivacaine solution, which consisted of 246.25 mg of ropivacaine, 0.5 mg of epinephrine, 30 mg of Toradol, 80 g of clonidine, and 48.45 mL of sterile water, for a total of 100 mL of fluid injected. A second dose of 1 g of Tranexamic acid was also given intravenously. Any blood collected by Cell Saver was then returned to the patient at this time. The fascia was then closed with 2-0 strata fix suture. The subcutaneous tissue was closed with 3-0 Vicryl. The subcuticular tissue was closed with 3-0 strata fix suture. The skin was then closed with Exofin skin glue. After the glue and dried, and Optifoam silver impregnated dressing was applied. The patient was then transferred to the recovery room in stable condition. The assistant manager airside operations PRATIK Beth was required due to the complexity of surgery, and the need for skilled surgical corsetier for positioning, draping, exposure, retraction, and closure of the wound.
--- NOTE | 2020-06-07 14:54 | FL ---
EXAMINATION TYPE: FL guidance operating room DATE OF EXAM: 06/07/2020 HISTORY: Fluoroscopy time 29 seconds of fluoroscopy provided. IMPRESSION: 1. Fluoroscopy time.
--- NOTE | 2020-06-07 14:56 | XR ---
EXAMINATION TYPE: XR Hip Limited LT DATE OF EXAM: 06/07/2020 COMPARISON: NONE HISTORY: Postop TECHNIQUE: One view submitted. FINDINGS: There is postsurgical change in near anatomic alignment. There is soft tissue edema and emphysema. IMPRESSION: 1. Postoperative change. Appears in near-anatomic alignment.
[2020-06-07] MEDS ORDERED: MEPERIDINE 50 MG/ML SYRINGE IVP ONE (15:26)
[2020-06-07] MEDS ORDERED: diphenhydrAMINE 50 MG/ML 1 ML VIAL IVP ONE (15:42)
[2020-06-07] MEDS: SODIUM CHLORIDE 0.9% 1,000 ML IV SCH (16:55)
[2020-06-07] MEDS ORDERED: diphenhydrAMINE 25 MG CAP PO PRN (17:26)
[2020-06-07] MEDS ORDERED: FAMOTIDINE 20 MG TAB PO PRN (17:26)
[2020-06-07] MEDS ORDERED: ALPRAZolam 0.25 MG TAB PO PRN (17:26)
[2020-06-07] MEDS: LEVOTHYROXINE 50 MCG TAB PO SCH (18:21)
[2020-06-07] MEDS ORDERED: ATORVASTATIN 10 MG TAB PO SCH (21:00)
[2020-06-07] MEDS ORDERED: SENNOSIDES-DOCUSATE SODIUM 1 EACH TAB PO SCH (21:00)
[2020-06-07] MEDS: ASPIRIN 325 MG TAB PO SCH (21:15)
[2020-06-08] MEDS: HYDROcodone/APAP 5-325MG 1 EACH TAB PO PRN ×2 (01:51→08:48)
[2020-06-08] MEDS: LACTATED RINGERS 1,000 ML IV SCH (03:09)
[2020-06-08] MEDS: SODIUM CHLORIDE 0.9% 1,000 ML IV SCH (05:34)
[2020-06-08] MEDS: LEVOTHYROXINE 50 MCG TAB PO SCH (05:35)
[2020-06-08 07:01] VITALS: PULSE 56; RESP 16; TEMP 97.7
[2020-06-08] MEDS: ASPIRIN 325 MG TAB PO SCH (07:07)
--- NOTE | 2020-06-08 08:11 | P.CONS ---
History of Present Illness - Reason for Consult Consult date: 06/07/20 Medical management Requesting physician: Greg Nolen - Chief Complaint Post left total hip arthroplasty - History of Present Illness This is a 74-year-old female one of my patient with a previous medical history significant for hypertension and hypertensive perivascular disease, hyperlipidemia, hypothyroidism, osteoarthritis, osteoporosis, GERD, patient und erwent left total hip arthroplasty that was done successfully by Dr. Nolen and we are asked to see the patient for postoperative medical management, patient was seen in the office as an outpatient for preoperative medical clearance and she had a cardiac workup including echocardiogram that showed normal ejection fraction as well as mild mitral regurgitation without evidence of wall motion abnormalities, patient is laying down in bed in no acute distress she denies any chest pain or shortness breath she has no abdominal pain nausea vomiting or diarrhea Review of Systems Constitutional: Denies anorexia, Denies chronic headaches, Denies chronic pain, Denies malaise, Denies weakness, Denies weight gain Eyes: denies blurred vision, denies bulging eye, denies decreased vision Ears: bilateral: decreased hearing Ears, nose, mouth and throat: Denies dysphagia, Denies neck lump, Denies sore throat Cardiovascular: Denies chest pain, Denies decreased exercise tolerance, Denies dyspnea on exertion, Denies lightheadedness, Denies rapid heart beat, Denies shortness of breath, Denies syncope Respiratory: Denies congestion, Denies cough with sputum, Denies home oxygen, Denies sleep apnea, Denies snoring, Denies wheezing Gastrointestinal: Denies abdominal pain, Denies bloating, Denies BRBPR, Denies heartburn, Denies melena, Denies nausea, Denies vomiting Genitourinary: Reports nocturia, Denies dysuria Menstruation: Reports postmenopausal Musculoskeletal: Reports loss of height, Reports low back pain, Reports morning stiffness Musculoskeletal: absent: ankle pain, ankle stiffness, ankle swelling, elbow pain, elbow stiffness, elbow swelling, foot pain, foot stiffness, foot swelling, hand pain, hand stiffness, hand swelling, hip pain, hip stiffness, hip swelling, knee pain, knee stiffness, knee swelling, shoulder pain, shoulder stiffness, shoulder swelling, wrist pain, wrist stiffness, wrist swelling Integumentary: Denies pruritus, Denies rash Neurological: Denies numbness, Denies weakness Psychiatric: Reports anxiety, Denies depression, Denies sadness/tearfulness, Denies sleep disturbances, Denies suicidal ideation Endocrine: Denies fatigue, Denies weight change Past Medical History Past Medical History: GERD/Reflux, Hyperlipidemia, Hypertension, Musculoskeletal Disorder (Osteoporosis ), Osteoarthritis (OA), Thyroid Disorder Additional Past Medical History / Comment(s): HX of UTI and possible colitis, has chronic stable pericardial effusion per pt., History of Any Multi-Drug Resistant Organisms: None Reported Past Surgical History: No Surgical Hx Reported Additional Past Surgical History / Comment(s): colonoscopy Past Anesthesia/Blood Transfusion Reactions: Postoperative Nausea & Vomiting (PONV) Smoking Status: Never smoker - Past Family History Mother Family Medical History: Coronary Artery Disease (CAD) (Mother at age of 91 from CAD and had quadruple bypass surgery.) Father Family Medical History: Hypertension (Father at age of 80 from obesity complication and he had hypertension .) Brother(s) Family Medical History: No Reported History (Patient has one brother no major medical problems.) Sister(s) Family Medical History: No Reported History (Patient has one sister no major medical problems.) Daughter(s) Family Medical History: No Reported History (Patient has 3 daughters no major medical problems .) Son(s) Family Medical History: No Reported History (Patient has 3 sons no major medical problems.) Medications and Allergies Home Medications Medication Instructions Recorded Confirmed Type Biotin 5 mg PO DAILY 03/21/19 06/01/20 History Levothyroxine Sodium [Synthroid] 50 mcg PO MOTUWETHFRSA 03/21/19 06/01/20 History Simvastatin [Zocor] 20 mg PO HS 03/21/19 06/01/20 History lisinopriL [Zestril] 2.5 mg PO HS 03/21/19 06/01/20 History Calcium Carbonate [Calcium] 1,000 mg PO DAILY 04/27/19 06/01/20 History Levothyroxine Sodium [Synthroid] 75 mcg PO MIRANDA 04/27/19 06/01/20 History HYDROcodone/APAP 5-325MG [[place] 5] 1 each PO Q6HR PRN #12 tab 05/18/20 06/01/20 Rx ALPRAZolam [Xanax] 0.25 mg PO DAILY PRN 06/01/20 06/07/20 History Cholecalciferol (Vitamin D3) 125 mcg PO DAILY 06/01/20 06/01/20 History [Vitamin D3 (5000 Iu)] Cranberry 36 mg PO DAILY 06/01/20 History Estradiol Cream [Estrace Cream 1 gm VAGINAL DIRECTED 06/01/20 06/01/20 History 0.01%] Famotidine [Pepcid] 20 mg PO DAILY PRN 06/01/20 06/01/20 History Niacinamide 1,000 mg PO DAILY 06/01/20 06/01/20 History diphenhydrAMINE HCL [Benadryl] 25 mg PO HS PRN 06/06/20 06/06/20 History Aspirin 325 mg PO BID #60 tab 06/07/20 Rx Sennosides [Senokot] 2 tab PO DAILY PRN #60 tablet 06/07/20 Rx Allergies Allergy/AdvReac Type Severity Reaction Status Date / Time Sulfa (Sulfonamide Allergy Rash/Hives Verified 06/07/20 12:24 Antibiotics) Physical Exam Vitals: Vital Signs Temp Pulse Pulse Resp BP Pulse Ox 06/07/20 16:15 68 16 104/58 100 06/07/20 16:01 69 16 111/60 100 06/07/20 15:45 72 16 136/85 100 06/07/20 15:32 71 16 112/61 100 06/07/20 15:15 92 16 103/60 98 06/07/20 15:00 82 16 87/54 99 06/07/20 14:55 97.0 F L 88 16 97/52 95 06/07/20 13:00 90 20 148/70 98 06/07/20 12:34 96.3 F L 97 17 165/106 98 Intake and Output 06/07/20 06/07/20 06/07/20 06:59 14:59 22:59 Intake Total 1051 0 Output Total 350 Balance 701 0 Intake: IV 1051 0 Output: Estimated Blood Loss 350 Other: Weight 54.5 kg 54.5 kg Physical examination: HEENT: Head is atraumatic, normocephalic, pupils were equal round reactive to light and accommodations, extraocular muscle movement were intact, sclera nonicteric, conjunctiva were not pale, mucous membranes of the mouth are somewhat dry. Neck: Supple, no JVP, no carotid bruit. Chest: Decreased breath sound at bases, otherwise clear to auscultation no crackles no wheezes no chest wall tenderness no intercostal retractions per Heart: First heart sound is depressed, second heart sounds normal, there is systolic ejection murmur 2/6 located in the left sternal border. Abdomen: Soft nontender nondistended, positive bowel sounds, no hepatosplenomegaly. Extremities: There is no edema, no calf tenderness, and her status pedis +2 bilaterally, left hip with a dressing. Neurologic examination: Patient is awake alert and oriented 3, cranial nerves III-12 appear to be grossly intact, muscle power 4 out of 5 in upper and lower extremities bilaterally. Assessment and Plan Assessment: Assessment and plan: 1. Post operative day #0 status post left total hip arthroplasty. Patient was instructed to use the incentive spirometer to reduce the incidence of atelectasis and healthcare associated pneumonia, continue current pain management as outlined by orthopedic surgery, continue with DVT prophylaxis, patient is currently on aspirin 325 minute gram orally twice every day and she will be on that for the next 30 days, continue with physical therapy evaluation tomorrow morning, most likely patient will be discharged home in the next 24 hours. 2. Hypertension and hypertensive cardiovascular disease. Continue lisinopril 2.5 mg orally once every day. 3. Hypothyroidism. Continue patient on Synthroid 50 g every day and 75 g on Saturday. 4. GERD. Continue with famotidine 20 mg orally once every day. 5. Hyperlipidemia. Continue simvastatin 20 mg at bedtime. 6. History of possible process. Hold alendronate and calcium supplement for now. 7. History of atrophic vaginitis. Hold estradiol cream while in the hospital. 8. DVT prophylaxis. Continue with aspirin 325 mg orally twice every day for the next 30 days. 9. GI prophylaxis. Continue patient on famotidine 20 mg orally once every day. 10. Thank you for the consult we'll follow the patient with you.
[2020-06-08] MEDS ORDERED: bisacodyL 5 MG TABLET.DR PO STA (08:12)
--- NOTE | 2020-06-08 08:16 | P.DS ---
Providers Expected date of discharge: 06/08/20 Attending physician: Greg Nolen Consults: 06/07/20 13:28 Consult Physician Routine Consulting Provider: Pamella Jackson Consult Reason/Comments: medical management Do you want consulting provider notified?: Yes Primary care physician: Pamella Jackson - Discharge Diagnosis(es) (1) S/P total hip arthroplasty Current Visit: Yes Status: Acute (2) Osteoarthritis of left hip Current Visit: No Status: Acute Hospital Course: This is a 74-year-old female with known history of degenerative arthritis of the left hip. The patient presented for evaluation as an outpatient. After discussion and consideration patient elects to proceed with total hip arthroplasty. The patient is seen preoperatively by Dr. Nolen and medically cleared for surgery by their primary care physician. Patient is admitted to [facility] on 06/07/2020 for total hip arthroplasty. The procedure is performed without complication or sequelae. The patient is doing well postoperatively. Labs and vital signs are stable on day of discharge. On day of discharge patient's hip incision is healing well. There is minimal erythema. There is no drainage noted at this time. There is minimal soft tissue swelling to the hip and thigh. Patient has full foot and ankle motion without difficulty or pain. Calf is soft and nontender to palpation. Neurovascular status to the left lower extremity is intact. Patient is discharged home in good condition. Opioid start talking form is reviewed and signed. Please see med rec for accurate list of home medications. Plan - Discharge Summary Discharge Rx Participant: No New Discharge Prescriptions: New Aspirin 325 mg PO BID #60 tab Sennosides [Senokot] 2 tab PO DAILY PRN #60 tablet PRN Reason: Constipation HYDROcodone/APAP 5-325MG [[place] 5-325] 1 - 2 tab PO Q6HR PRN #48 tab PRN Reason: Pain No Action Biotin 5 mg PO DAILY Simvastatin [Zocor] 20 mg PO HS lisinopriL [Zestril] 2.5 mg PO HS Levothyroxine Sodium [Synthroid] 50 mcg PO MOTUWETHFRSA Levothyroxine Sodium [Synthroid] 75 mcg PO MIRANDA Calcium Carbonate [Calcium] 1,000 mg PO DAILY HYDROcodone/APAP 5-325MG [[place] 5] 1 each PO Q6HR PRN #12 tab PRN Reason: Pain Cholecalciferol (Vitamin D3) [Vitamin D3 (5000 Iu)] 125 mcg PO DAILY Estradiol Cream [Estrace Cream 0.01%] 1 gm VAGINAL DIRECTED Cranberry 36 mg PO DAILY Famotidine [Pepcid] 20 mg PO DAILY PRN PRN Reason: gerd ALPRAZolam [Xanax] 0.25 mg PO DAILY PRN PRN Reason: Anxiety Niacinamide 1,000 mg PO DAILY diphenhydrAMINE HCL [Benadryl] 25 mg PO HS PRN PRN Reason: Insomnia Discharge Medication List Biotin 5 mg PO DAILY 03/21/19 [History] Levothyroxine Sodium [Synthroid] 50 mcg PO MOTUWETHFRSA 03/21/19 [History] Simvastatin [Zocor] 20 mg PO HS 03/21/19 [History] lisinopriL [Zestril] 2.5 mg PO HS 03/21/19 [History] Calcium Carbonate [Calcium] 1,000 mg PO DAILY 04/27/19 [History] Levothyroxine Sodium [Synthroid] 75 mcg PO MIRANDA 04/27/19 [History] HYDROcodone/APAP 5-325MG [[place] 5] 1 each PO Q6HR PRN #12 tab 05/18/20 [Rx] ALPRAZolam [Xanax] 0.25 mg PO DAILY PRN 06/01/20 [History] Cholecalciferol (Vitamin D3) [Vitamin D3 (5000 Iu)] 125 mcg PO DAILY 06/01/20 [History] Cranberry 36 mg PO DAILY 06/01/20 [History] Estradiol Cream [Estrace Cream 0.01%] 1 gm VAGINAL DIRECTED 06/01/20 [History] Famotidine [Pepcid] 20 mg PO DAILY PRN 06/01/20 [History] Niacinamide 1,000 mg PO DAILY 06/01/20 [History] diphenhydrAMINE HCL [Benadryl] 25 mg PO HS PRN 06/06/20 [History] Aspirin 325 mg PO BID #60 tab 06/07/20 [Rx] Sennosides [Senokot] 2 tab PO DAILY PRN #60 tablet 06/07/20 [Rx] HYDROcodone/APAP 5-325MG [[place] 5-325] 1 - 2 tab PO Q6HR PRN #48 tab 06/08/20 [Rx] Follow up Appointment(s)/Referral(s): Greg Nolen DO [Doctor of Osteopathic Medicine] - 2 Weeks Activity/Diet/Wound Care/Special Instructions: Weightbearing as tolerated with walker. Leave dressing intact. Dressing may be removed by home care nurse or by patient in 10 days. May shower with dressing on. Please take aspirin 325mg twice daily for 30 days to prevent blood clots. Recommend use of compression stockings daily until follow up to help prevent swelling and blood clots. May remove at night before sleeping. Please follow-up with [facility] in 2 weeks and call with any questions or concerns, . Discharge Disposition: HOME WITH HOME HEALTH SERVICES
[2020-06-08] MEDS ORDERED: NON FORMULARY DRUG (Biotin [Biotin] 5 MG Capsule) PO SCH (09:00)
[2020-06-08] MEDS ORDERED: NIACIN TR 500 MG CAPLET PO SCH (09:00)
[2020-06-08] MEDS ORDERED: CALCIUM CARBONATE 500 MG CHEWABLE PO SCH (09:00)
[2020-06-08] MEDS ORDERED: CHOLECALCIFEROL 25 MCG (1000 IU) TABLET PO SCH (09:00)
[2020-06-08] MEDS ORDERED: MELOXICAM 7.5 MG TAB PO SCH (09:00)
[2020-06-08 09:07] LABS: Basophils # (A) 0.01 X 10*3/uL (0.00-0.10); Basophils % (A) 0.1 %; Eosinophils # (A) 0.02 X 10*3/uL (0.04-0.35); Eosinophils % (A) 0.2 %; HCT 33.6 % (37.2-46.3); HGB 10.8 g/dL (12.0-15.0); Lymphocytes # (A) 1.07 X 10*3/uL (0.90-5.00); Lymphocytes % (A) 9.2 %; MCHC 32.1 g/dL (32.0-37.0); MCV 93.3 fL (80.0-97.0); Mean Platelet Volume 10.2 fL (9.5-12.2); Monocytes # (A) 0.58 X 10*3/uL (0.20-1.00); Neutrophils # (A) 9.92 X 10*3/uL (1.80-7.70); Neutrophils % (A) 84.9 %; Platelet Count 143 X 10*3/uL (140-440); RDW 12.9 % (11.5-14.5); WBC 11.67 X 10*3/uL (4.50-10.00)
--- NOTE | 2020-06-08 09:28 | P.PN ---
Subjective Progress Note Date: 06/08/20 This is a 74-year-old female one of my patient with a previous medical history significant for hypertension and hypertensive perivascular disease, hyperlipidemia, hypothyroidism, osteoarthritis, osteoporosis, GERD, patient underwent left total hip arthroplasty that was done successfully by Dr. Nolen and we are asked to see the patient for postoperative medical management, patient was seen in the office as an outpatient for preoperative medical clearance and she had a cardiac workup including echocardiogram that showed normal ejection fraction as well as mild mitral regurgitation without evidence of wall motion abnormalities, patient is laying down in bed in no acute distress she denies any chest pain or shortness breath she has no abdominal pain nausea vomiting or diarrhea 06/08: Patient states that she is feeling much better today, pain is controlled. She does have bruising at the site. She has not had a bowel movement. Blood pressure has been on the low side but IV fluids will be discontinued this morning. She is working with physical therapy and anticipate discharge home later today. Patient has been afebrile, heart rate 56, blood pressure 91/50, pulse ox 99% on room air. Medication reconciliation has been reviewed for discharge. Objective - Vital Signs Vital signs: Vital Signs Temp 97.7 F 06/08/20 06:56 Pulse 56 L 06/08/20 06:56 Resp 16 06/08/20 07:15 BP 91/50 06/08/20 06:56 Pulse Ox 99 06/08/20 08:09 Intake & Output 06/07/20 06/08/20 06/08/20 18:59 06:59 18:59 Intake Total 1051 Output Total 350 900 Balance 701 -900 Weight 54.5 kg Intake: IV 1051 Output: Urine 900 Estimated Blood Loss 350 Other: # Voids 0 1 # Bowel Movements 0 - Exam Review of Systems Constitutional: Denies anorexia, Denies chronic headaches, Denies chronic pain, Denies malaise, Denies weakness, Denies weight gain Eyes: denies blurred vision, denies bulging eye, denies decreased vision Ears, nose, mouth and throat: Denies dysphagia, Denies neck lump, Denies sore throat Cardiovascular: Denies chest pain, Denies decreased exercise tolerance, Denies dyspnea on exertion, Denies lightheadedness, Denies rapid heart beat, Denies shortness of breath, Denies syncope Respiratory: Denies congestion, Denies cough with sputum, Denies home oxygen, Denies sleep apnea, Denies snoring, Denies wheezing Gastrointestinal: Denies abdominal pain, Denies bloating, Denies BRBPR, Denies heartburn, Denies melena, Denies nausea, Denies vomiting Genitourinary: Reports nocturia, Denies dysuria Menstruation: Reports postmenopausal Musculoskeletal: Reports loss of height, Reports low back pain, Reports morning stiffness Musculoskeletal: absent: ankle pain, ankle stiffness, ankle swelling, elbow pain, elbow stiffness, elbow swelling, foot pain, foot stiffness, foot swelling, hand pain, hand stiffness, hand swelling, hip pain, hip stiffness, hip swelling, knee pain, knee stiffness, knee swelling, shoulder pain, shoulder stiffness, shoulder swelling, wrist pain, wrist stiffness, wrist swelling Integumentary: Denies pruritus, Denies rash Neurological: Denies numbness, Denies weakness Psychiatric: Reports anxiety, Denies depression, Denies sadness/tearfulness, Den ies sleep disturbances, Denies suicidal ideation Endocrine: Denies fatigue, Denies weight change no rebound Physical examination: HEENT: Head is atraumatic, normocephalic, pupils were equal round reactive to light and accommodations, extraocular muscle movement were intact, sclera nonicteric, conjunctiva were not pale, mucous membranes of the mouth are somewhat dry. Neck: Supple, no JVP, no carotid bruit. Chest: Decreased breath sound at bases, otherwise clear to auscultation no crackles no wheezes no chest wall tenderness no intercostal retractions per Heart: First heart sound is depressed, second heart sounds normal, there is systolic ejection murmur 2/6 located in the left sternal border. Abdomen: Soft nontender nondistended, positive bowel sounds, no hep atosplenomegaly. Extremities: There is no edema, no calf tenderness, and her status pedis +2 bilaterally, left hip with a dressing, ecchymosis to the left hip. Neurologic examination: Patient is awake alert and oriented 3, cranial nerves III-12 appear to be grossly intact, muscle power 4 out of 5 in upper and lower extremities bilaterally. - Labs CBC & Chem 7: 06/08/20 06:12 Labs: Abnormal Lab Results - Last 24 Hours (Table) 06/08/20 Range/Units 06:12 WBC 11.67 H (4.50-10.00) X 10*3/uL RBC 3.60 L (4.10-5.20) X 10*6/uL Hgb 10.8 L (12.0-15.0) g/dL Hct 33.6 L (37.2-46.3) % Immature Gran # 0.07 H (0.00-0.04) X 10*3/uL Neutrophils # 9.92 H (1.80-7.70) X 10*3/uL Eosinophils # 0.02 L (0.04-0.35) X 10*3/uL Assessment and Plan Plan: 1. Post operative day #1 status post left total hip arthroplasty. Patient was instructed to use the incentive spirometer to reduce the incidence of atelectasis and healthcare associated pneumonia, continue current pain management as outlined by orthopedic surgery, continue with DVT prophylaxis, patient is currently on aspirin 325 minute gram orally twice every day and she will be on that for the next 30 days, continue with physical therapy evaluation tomorrow morning, most likely patient will be discharged home in the next 24 hours. 2. Hypertension and hypertensive cardiovascular disease. Continue lisinopril 2.5 mg orally once every day. 3. Hypothyroidism. Continue patient on Synthroid 50 g every day and 75 g on Saturday. 4. GERD. Continue with famotidine 20 mg orally once every day. 5. Hyperlipidemia. Continue simvastatin 20 mg at bedtime. 6. History of possible process. Hold alendronate and calcium supplement for now. 7. History of atrophic vaginitis. Hold estradiol cream while in the hospital. 8. DVT prophylaxis. Continue with aspirin 325 mg orally twice every day for the next 30 days. 9. GI prophylaxis. Continue patient on famotidine 20 mg orally once every day. 10. Constipation. Patient to take Senokot 2 tablets at nighttime and a Dulcolax oral every third day if she does not have a bowel movement. Discharge plan: Home Impression and plan of care have been directed as dictated by the signing physician. Sapna Mcnulty nurse practitioner acting as scribe for signing physician.
[2020-06-08 10:33] VITALS: BP 93/52
[2020-06-11] MEDS ORDERED: bisacodyL 5 MG TABLET.DR PO PRN (08:12)
[2020-06-12] MEDS ORDERED: LEVOTHYROXINE 75 MCG TAB PO SCH (06:30)
== END 2020-06-08 13:35 | disposition home health service (06) ==
LOC: OR 12:07 → 4SSUR 16:11 → OR 06-08 13:35
PROVIDERS: ATTEND Orthopaedic Surgery
DX: M16.12 Unilateral primary osteoarthritis, left hip (principal); E03.9 Hypothyroidism, unspecified; E78.2 Mixed hyperlipidemia; R00.2 Palpitations; I31.3 Pericardial effusion (noninflammatory); M81.0 Age-related osteoporosis without current pathological fracture; K21.9 Gastro-esophageal reflux disease without esophagitis; I10 Essential (primary) hypertension; L98.9 Disorder of the skin and subcutaneous tissue, unspecified; H91.90 Unspecified hearing loss, unspecified ear; Z97.3 Presence of spectacles and contact lenses; Z82.49 Family history of ischemic heart disease and other diseases of the circulatory system; M19.90 Unspecified osteoarthritis, unspecified site; Z87.440 Personal history of urinary (tract) infections; Z79.890 Hormone replacement therapy; Z79.82 Long term (current) use of aspirin; Z79.52 Long term (current) use of systemic steroids; Z79.899 Other long term (current) drug therapy; Z79.891 Long term (current) use of opiate analgesic; Z88.2 Allergy status to sulfonamides
CPT/HCPCS: 94760; 97110; 97161; 97535; 97165; 86891; 85025; 88300; 73501; 27130; C1776; J2250; J1200; J1644; J1100; J2175; J0690 ×3; J2405; J3010; J2704; J1170; 86850; 86900; 86901

== ENCOUNTER → 2021-06-02 | Outpatient (CLI) | payer MEDICARE ==
--- NOTE | 2021-06-05 11:03 | MM ---
Reason for exam: screening (asymptomatic). Last mammogram was performed 1 year ago. History: Patient is postmenopausal and has history of other cancer at age 58. Took estrogen for 2 years 10 months beginning at age 59. Took progesterone for 2 years 10 months beginning at age 59. Physical Findings: A clinical breast exam by your physician is recommended on an annual basis and results should be correlated with mammographic findings. MG 3D Screening Mammo W/Cad Bilateral CC and MLO view(s) were taken. Prior study comparison: June 01, 2020, bilateral MG 3d screening mammo w/cad. April 13, 2019, bilateral MG 3d screening mammo w/cad. There are scattered fibroglandular densities. Stable calcifications. There is no discrete abnormality. No significant changes when compared with prior studies. ASSESSMENT: Benign, BI-RAD 2 RECOMMENDATION: Routine screening mammogram of both breasts in 1 year.
== END | disposition home or self-care (01) ==
LOC: RADMAMWWP 10:05
PROVIDERS: ATTEND Obstetrics & Gynecology
DX: Z12.31 Encounter for screening mammogram for malignant neoplasm of breast (principal); Z78.0 Asymptomatic menopausal state
CPT/HCPCS: 77063; 77067

== ENCOUNTER 2021-07-06 05:46 | Day surgery (SDC) | payer MEDICARE ==
[2021-07-04 18:39] VITALS: BMI 20.5
[2021-07-06] MEDS ORDERED: ALPRAZolam 0.5 MG TAB PO PRN (05:47)
[2021-07-06] MEDS ORDERED: NITROGLYCERIN SL TABS 0.4 MG TAB SUBLINGUAL PRN (05:47)
[2021-07-06] MEDS ORDERED: ALPRAZolam 0.25 MG TAB PO PRN ×2 (05:47→07:54)
[2021-07-06] MEDS ORDERED: SODIUM CHLORIDE 0.9% 1,000 ML in EMPTY BAG 1 BAG IV SCH (05:47)
[2021-07-06 06:28] VITALS: TEMP 98.4
[2021-07-06] MEDS ORDERED: ATORVASTATIN 80 MG TAB PO ONE (07:00)
[2021-07-06] MEDS ORDERED: ASPIRIN 325 MG TAB PO ONE (07:00)
[2021-07-06] MEDS ORDERED: LIDOCAINE 1% INJ 10MG/ML (20 ML MDV) ONE (07:15)
[2021-07-06] MEDS ORDERED: VERAPAMIL 2.5 MG/ML 2 ML AMP ONE (07:30)
[2021-07-06] MEDS ORDERED: fentaNYL (PF) 50 MCG/ML 2 ML AMP ONE (07:30)
[2021-07-06] MEDS ORDERED: HEPARIN SODIUM 1,000 UN/ML (10ML VL) ONE (07:30)
[2021-07-06] MEDS ORDERED: fentaNYL (PF) 50 MCG/ML 2 ML AMP IV ONE (07:30)
[2021-07-06] MEDS ORDERED: LIDOCAINE 1% INJ 10MG/ML (20 ML MDV) SQ ONE (07:36)
[2021-07-06] MEDS ORDERED: VERAPAMIL SYRINGE (5 MG/10 ML) INTRAARTER ONE (07:40)
[2021-07-06] MEDS ORDERED: IOPAMIDOL-370 125ML BTL INJ ONE (07:46)
[2021-07-06] MEDS ORDERED: RX INFO: IV CONTRAST WAS GIVEN 1 EACH MISC MISCELLANE PRN (07:54)
[2021-07-06] MEDS ORDERED: SODIUM CHLORIDE 0.9% 1,000 ML IV SCH (08:00)
[2021-07-06] MEDS ORDERED: LEVOTHYROXINE 50 MCG TAB PO SCH (08:00)
--- NOTE | 2021-07-06 08:00 | P.CARDCATH ---
Date of Procedure: 07/06/21 Description of Procedure: Cardiac Catheterization: The patient is a 75-year-old female with a known history of hypertension and hyperlipidemia who has been complaining of episodes of chest discomfort. Her MPI showed evidence of septal wall. Both options of clinical observation versus cardiac catheterization were discussed with the patient who was in favor cardiac catheterization. Recommendations were made regarding cardiac catheterization, the risks and the complications were discussed with the patient who is in full understanding and agreement. Procedure Description: Patient was brought to carpenter labor supervisor in fasting semi-sedated state after receiving Fentanyl and Benadryl achieiving moderate conscious sedated state. Using Xylocaine Anesthesia and Seldinger technique, a 6-Burmese sheath was introduced in the right radial artery . Subsequently, selective coronary angiography performed using a 5-[place] 3.5 bend Maribel catheter. Multiple views of the coronary artery including hemiaxial views were obtained. The right Maribel catheter was used to cross the aortic valve and LVEDP was calculated. Following that, catheter and sheath were removed. Hemostasis was obtained with deployment of TR band . There was no immediate complication. Patient was returned to room in stable condition. Of note, the patient received a total of 3000 units of intravenous heparin as well as intra-arterial verapamil. There was no immediate complications. Findings: Left main: This is a large size vessel, bifurcating into LAD and left circumflex, left main has no high-grade stenosis. LAD: This is a large size vessel, reaching to the apex with a wraparound the apex segment giving rise to a large diagonal branch. At the takeoff of the first septal patrol lady there is 10 to 20% plaque in other plaque in the midsegment of 20-30%. The rest of the vessel has no high-grade stenosis. Left circumflex: This is a nondominant vessel giving rise to 2 obtuse marginal branch, the second one is large in caliber, the left circumflex and its branches have no high-grade stenosis RCA: This is a large dominant vessel, bifurcating into PDA and PLV, the RCA and its branches have no high-grade stenosis [Left] Ventriculogram: Was not performed Hemodynamics: There was no gradient across the aortic valve, LVEDP 10-12 mmHg Conclusion: 1. Mild disease in the mid and proximal LAD 2. Right dominance 3. Normal LVEDP Recommendations: I have recommended to continue medical therapy with aggressive coronary risks modifications. The findings and recommendations were discussed with the patient and her family and they are in understanding and agreement. Duration of sedation is 16 minutes.
[2021-07-06] MEDS ORDERED: NON FORMULARY DRUG (Biotin [Biotin] 5 MG Capsule) PO SCH (09:00)
[2021-07-06] MEDS ORDERED: NON FORMULARY DRUG (Cholecalciferol (Vitamin D3) [Vitamin D3 (5000 Iu)] 125 MCG Capsule) PO SCH (09:00)
[2021-07-06] MEDS ORDERED: NON FORMULARY DRUG (Calcium Carbonate [Calcium] 600 MG Tablet) PO SCH (09:00)
[2021-07-06 10:10] VITALS: BP 95/53; PULSE 48; RESP 14
[2021-07-06] MEDS ORDERED: FAMOTIDINE 20 MG TAB PO SCH (21:00)
[2021-07-06] MEDS ORDERED: ASPIRIN 81 MG PO SCH (21:00)
[2021-07-06] MEDS ORDERED: ATORVASTATIN 20 MG TAB PO SCH (21:00)
[2021-07-09] MEDS ORDERED: LEVOTHYROXINE 75 MCG TAB PO SCH (06:30)
== END 2021-07-06 12:00 | disposition home or self-care (01) ==
LOC: CATHCVL 05:46
PROVIDERS: ATTEND Internal Medicine Interventional Cardiology
DX: R94.39 Abnormal result of other cardiovascular function study (principal); I10 Essential (primary) hypertension; E78.5 Hyperlipidemia, unspecified; Z82.49 Family history of ischemic heart disease and other diseases of the circulatory system; Z79.82 Long term (current) use of aspirin; Z79.899 Other long term (current) drug therapy; Z20.822 Contact with and (suspected) exposure to COVID-19
CPT/HCPCS: 93458; 87635; C1894; C1769; J2001; J3010; J1644; Q9967

== ENCOUNTER → 2022-06-05 | Outpatient (CLI) | payer MEDICARE ==
--- NOTE | 2022-06-05 13:18 | BD ---
EXAMINATION TYPE: Axial Bone Density DATE OF EXAM: 06/05/2022 CLINICAL HISTORY: 76 years year old Female. ICD-10 CODE: M85.88 Osteopenia Height: 5'4 Weight: 119 FRAX RISK QUESTIONS: History of Fracture in Adulthood: y Secondary Osteoporosis: RISK FACTORS HISTORY OF: Surgery to /Hip(/left)/): total l hip When: 2020 Postmenopausal woman: y MEDICATIONS: Which medication: Synthroid How Lon years Additional Medications: blood pressure, cholesterol, reflux Additional History: EXAM MEASUREMENTS: Bone mineral densitometry was performed using the [employer]ing[employer] System. Bone mineral density as measured about the Lumbar spine is: ----- L1-L4(G/cm2): 1.103 T Score Values are as follows: ----- L1: -2.4 ----- L2: -0.4 ----- L3: 0.0 ----- L4: 0.0 ----- L1-L4:-0.6 Z Score Values are as follows: ----- L1: -0.2 ----- L2: 1.7 ----- L3: 2.2 ----- L4: 2.2 ----- L1-L4:1.5 Bone mineral density has: Decreased -14.0% since study of: 04/13/2020 Bone mineral density about the R hip (g/cm2): 0.672 T Score values are as follows: -----R Neck: -1.8 -----R Total: -2.7 Z Score values are as follows: -----R Neck: 0.05 -----R Total: -0.5 Bone mineral density has: Decreased -3.3% since study of: 04/13/2020 FRAX%s: The graph provided illustrates a 31.5% chance for a major osteoporotic fx and a19.1% chance f or the hips probability for fx in 10 years time. IMPRESSION: Osteoporosis (T Score less than -2.5). There is increased fracture risk and therapy is usually indicated based on age. Re-Screen 1-2 years. NOTE: T-SCORE=SD OF THE YOUNG ADULT MEAN.
--- NOTE | 2022-06-06 08:53 | MM ---
Reason for Exam: Screening (asymptomatic). Last screening mammogram was performed 12 month(s) ago. Patient History: Menarche at age 10. First Full-Term at age 23. Postmenopausal. Other cancer, age 58. Estrogen, starting at age 59 for 2 years, 10 months. Progesterone, starting at age 59 for 2 years, 10 months. Risk Values: Belkis 5 year model risk: 1.9%. NCI Lifetime model risk: 3.4%. Prior Study Comparison: 04/13/2019 Bilateral Screening Mammogram, [facility]. 06/01/2020 Bilateral Screening Mammogram, [facility]. 06/02/2021 Bilateral Screening Mammogram, [facility]. Tissue Density: There are scattered fibroglandular densities. Analyzed By CAD. Overall Assessment: Benign, BI-RAD 2 Management: Screening Mammogram of both breasts in 1 year. Electronically signed and approved by: Efrain Jacobson M.D.
== END | disposition home or self-care (01) ==
LOC: RADMAMWWP 12:31
PROVIDERS: ATTEND Obstetrics & Gynecology
DX: Z12.31 Encounter for screening mammogram for malignant neoplasm of breast (principal); M81.0 Age-related osteoporosis without current pathological fracture; M85.88 Other specified disorders of bone density and structure, other site; Z78.0 Asymptomatic menopausal state
CPT/HCPCS: 77063; 77067; 77080

== ENCOUNTER → 2022-12-13 | Outpatient (CLI) | payer MEDICARE ==
[2022-12-13 12:34] LABS: INR 0.9 (<1.2)
[2022-12-13 12:35] LABS: Partial Thromboplastin Time 24.3 sec (22.0-30.0); Prothrombin Time 9.7 sec (9.0-12.0)
[2022-12-13 16:29] LABS: Basophils # (A) 0.05 X 10*3/uL (0.00-0.10); Basophils % (A) 0.7 %; Eosinophils # (A) 0.23 X 10*3/uL (0.04-0.35); Eosinophils % (A) 3.3 %; HCT 42.6 % (37.2-46.3); HGB 13.4 d/dL (12.0-15.0); Lymphocytes # (A) 1.41 X 10*3/uL (0.90-5.00); Lymphocytes % (A) 20.3 %; MCH 28.6 pg (27.0-32.0); MCHC 31.5 d/dL (32.0-37.0); Mean Platelet Volume 10.4 FL (9.5-12.2); Monocytes # (A) 0.42 X 10*3/uL (0.20-1.00); Monocytes % (A) 6.1 %; NRBC Per 100 WBC 0 X 10*3/uL (0.00-0.01); Neutrophils % (A) 69.3 %; Platelet Count 199 X 10*3/uL (140-440); RBC 4.68 X 10*6/uL (4.10-5.20); RDW 12.8 % (11.5-14.5); WBC 6.93 X 10*3/uL (4.50-10.00)
== END | disposition home or self-care (01) ==
LOC: LABWHC1 10:24
PROVIDERS: ATTEND Orthopaedic Surgery
DX: Z01.812 Encounter for preprocedural laboratory examination (principal); M17.11 Unilateral primary osteoarthritis, right knee
CPT/HCPCS: 85025; 85610; 85730; 87070

== ENCOUNTER → 2022-12-26 | Outpatient (CLI) | payer MEDICARE ==
[2022-12-26 16:01] LABS: ALT 16 U/L (8-44); AST 30 U/L (13-35); Albumin 4.3 d/dL (3.8-4.9); Albumin/Globulin Ratio 2.15 Ratio (1.60-3.17); Alkaline Phosphatase 40 U/L (41-126); BUN/Creat Ratio 18.11 Ratio (12.00-20.00); Blood Urea Nitrogen 16.3 mg/dL (9.0-27.0); Calcium 9.5 mg/dL (8.7-10.3); Carbon Dioxide 28.7 mmol/L (21.6-31.8); Chloride 105 mmol/L (96-109); Glucose 69 mg/dL (70-110); Potassium 4.8 mmol/L (3.5-5.5); Sodium 141 mmol/L (135-145); Total Bilirubin 0.6 mg/dL (0.3-1.2); Total Protein 6.3 d/dL (6.2-8.2)
== END | disposition home or self-care (01) ==
LOC: LABPAT 10:08
PROVIDERS: ATTEND Orthopaedic Surgery
DX: Z01.812 Encounter for preprocedural laboratory examination (principal)
CPT/HCPCS: 80053

== ENCOUNTER 2023-01-01 05:32 | Day surgery (SDC) | payer MEDICARE ==
[2022-12-25 15:43] VITALS: BMI 20.9
[~2023-01-01 05:32] MED LIST changes: -DEXAMETHASONE SOD PHOSPHATE 4 MG/ML 1 ML VIAL IV ONE; -HYDROmorphone 0.5 MG/0.5 ML SYRINGE IVP PRN; -LIDOCAINE 1% (10MG/ML) FOR IV START INTRADERMA PRN; -MIDAZOLAM 2 MG/2 ML VIAL IV PRN; -ONDANSETRON 4 MG/2 ML VIAL IVP ONE; +TRANEXAMIC 1,000 MG/100ML-NACL 1,000 MG in SALINE 1 100ML.BAG IVPB PRN; -TRANEXAMIC ACID 1,000 MG in SODIUM CHLORIDE 0.9% 100 ML IVPB PRN
[2023-01-01] MEDS ORDERED: LACTATED RINGERS 1,000 ML IV ONE ×2 (05:45→08:33)
[2023-01-01] MEDS ORDERED: HYDROmorphone 0.5 MG/0.5 ML SYRINGE IVP PRN ×4 (06:20→09:04)
[2023-01-01] MEDS ORDERED: MIDAZOLAM 2 MG/2 ML VIAL IV PRN (06:20)
[2023-01-01] MEDS ORDERED: LIDOCAINE 1% (10MG/ML) FOR IV START INTRADERMA PRN (06:20)
[2023-01-01] MEDS ORDERED: ONDANSETRON 4 MG/2 ML VIAL ONE (06:25)
[2023-01-01] MEDS ORDERED: DEXAMETHASONE SOD PHOSPHATE 4 MG/ML 1 ML VIAL IVP ONE (06:30)
[2023-01-01] MEDS ORDERED: MIDAZOLAM 2 MG/2 ML VIAL IVP ONE (06:46)
[2023-01-01] MEDS ORDERED: ceFAZolin 1,000 MG in SODIUM CHLORIDE 0.9% 1,000 ML IRRIGATION ONE (07:05)
--- NOTE | 2023-01-01 08:28 | P.OP ---
Date of Procedure: 01/01/23 Preoperative Diagnosis: Severe osteoarthritis right knee Postoperative Diagnosis: Severe osteoarthritis right knee Procedure(s) Performed: Right total knee arthroplasty Implants: [employer]hew Journey II CR Oxinium cruciate retaining femoral component size 5, right [employer] Journey nonporous tibial baseplate size 4, right [employer] Journey II, XLPE Deep Dished articular insert, size 11 mm, Size 3-4, right [employer] Journey Anita II resurfacing patellar component, round, 29 mm All components were cemented using Palacos R bone cement The articulation is Oxinium on polyethylene Anesthesia: spinal Surgeon: Greg Nolen Data Reviewer #1: Carly Gonsalez Estimated Blood Loss (ml): 30 Pathology: none sent Condition: stable Disposition: PACU Indications for Procedure: The patient's knee is end-stage, and conservative management has failed. The operation of knee replacement has been discussed at length in the office, as well as potential risks and complications. These are inclusive of, but not limited to: Infection, bleeding, scarring, discomfort, stiffness, blood vessel and nerve damage, need for further surgery, failure to relieve symptoms, persistence, recurrence, or worsening of problems, loosening, dislocation, wear, blood clot, pulmonary embolism, , gait dysfunction, stiffness, and other risks as discussed in the office. Patient elects to proceed and the consent form has been signed. Operative Findings: The operative findings are consistent with severe osteoarthritis of the right knee Description of Procedure: The patient was seen in the preoperative area, the consent was reviewed and the operative site was marked with a skin marker. The patient verified the procedure and the operative site. An adductor canal pain catheter and an iPACK block were placed by anesthesia in the preoperative area. The patient was then brought to the operating room and positioned on the operating room table in the supine position. Preoperative antibiotics and a gram of tranexamic acid were given intravenously. A spinal anesthetic was administered by the anesthesia department. Care was taken to make sure that all pressure points were adequately padded. A tourniquet was placed on the upper thigh and the lower extremity was prepped with ChloraPrep and draped in usual sterile fashion. A universal time-out was then performed which confirmed the patient's name, surgical site, ALLERGIES, and consent. The lower extremity was then exsanguinated and tourniquet was inflated to 250 mmHg. A standard anterior midline approach to the knee was performed. The skin and subcutaneous tissue were sharply dissected down to the patellar tendon. A medial parapatellar arthrotomy was then performed. The knee was then extended, the patellar was everted, and the knee was flexed. The infra-patellar fat pad was removed in order to enhance exposure. The anterior horns of both menisci were excised, and a release was performed to the posterior medial aspect of the knee. On gross visual inspection, there was complete loss of articular cartilage in the medial and patellofemoral joint spaces. There was also significant cartilage damage in the lateral compartment. There were multiple periarticular osteophytes globally about the knee which were then removed with a Ronguer. The femoral canal was then opened with the 9.5 mm intramedullary drill. The 8 mm intramedullary max was then inserted into the femoral canal with the distal femoral cutting guide set for 5 of valgus. The distal femoral cutting block was then pinned in place. The intramedullary max was then removed, and the distal femur was then cut. The cutting block was then removed and the cut was checked for symmetry. The resected bone was then measured to confirm the appropriate distal femoral resection. Next, the sizing guide was then placed and set for 3 external rotation based off of the epicondylar axis and Prentiss's line. Pins were then placed and the drill holes, and the femur was sized with the sizing stylus. The pins were then removed, and the sizing guide was then removed. The spikes of the appropriate size femoral block was then placed into the predrilled holes, and malleted into place. Two 45 mm pins were then placed into the fixation holes on the cutting block. An alexandro wing was then used to ensure there would be no notching with the anterior cut. The anterior condyles were cut without notching. The anterior chord cut was then performed, followed by the posterior cut, posterior chamfer cut, and the anterio r chamfer cut. The collateral ligaments were protected during the entire process. The cutting block was then removed. Any remaining bone and osteophytes were removed from the femur with a Ronguer. Attention was then directed to the tibia. The remaining ACL was removed with a Ronguer, and the tibia was then gently subluxed forward with a large bent knee retractor. Any remaining menisci were excised. The posterior lateral corner was cauterized in order to coagulate the lateral geniculate artery. The extra medullary tibial cutting guide was then placed, set for the appropriate rotation, slope, and depth of resection. The proximal tibia cutting guide was then pinned in place. Proximal tibia was then cut and sized. A curved osteotome was then used to remove any posterior osteophytes from the distal femur. The femoral trial was placed. A narrow saw blade was then used to remove the anterior intracondylar femoral bone. The CR notch trial was then placed. The tibial trial was placed with the appropriate-sized insert. The knee was able to fully extend and flex to 130 and was stable throughout all range of motion. The knee was then extended and the patella was everted. Patella was then measured, and then using an osteotomy guide, the patella was cut at the appropriate level. The patellar component was sized. The patellar drill guide was placed and the patella was drilled. The patella trial was then placed. The knee was then taken through range of motion with the patella trial and the patella tracked normally using the no thumbs technique. The patella trial was then removed. The knee was then flexed and lug holes were drilled through the femoral trial and the femoral trial was then removed. The tibial was then re- exposed, and the tibial broach guide was then pinned in place after it was set for the appropriate rotation to allow for the most coverage without overhang. The tibia was then reamed and broached. The femoral canal was plugged with autologous bone. The cut surfaces of bone were then irrigated with pulsatile lavage. The knee was also irrigated with Irrisept solution. The components were then opened, the cement was mixed. Cement was placed on the backside of the femoral, tibial, and patellar components. Cement was then applied to the tibial surface and pressurized into the surface using finger pressurization technique. The tibial component was then applied and excess cement was removed after it was impacted securely noted to be flush with the cut surface. In similar fashion, the cement was applied to the cut femoral surface, pressurized and using finger pressurization the component was impacted in place. Excess cement was removed. The polyethylene spacer was then implanted and locked into position. Patellar component was then applied in a similar technique and the patellar clamp was used to hold patella in place while the cement hardened. The knee was held in full extension while the cement hardened. Once the cement had fully hardened, the knee was reinspected. Any other cement extrusion was removed the final range of motion testing showed range of motion from 0-130 with excellent stability, both medial and laterally and appropriate alignment of the leg. Patella tracked normally. After the cemented hardened, the tourniquet was released and hemostasis was obtained. A second gram of transexamic acid was given intravenously. The knee was again irrigated. The knee was again taken through range of motion and found to be stable throughout all range of motion of 0-130, and the patella tracked normally. The fascia was then closed with 0 Vicryl followed by #2 strata fix suture. The subcutaneous tissue was closed with 3-0 Vicryl and 3-0 strata fix. Exofin glue was used for the skin and placed with the knee in flexion. After the glue had dried, and Optafoam silver impregnated dressing was applied. A lightly compressive dressing was applied using web roll and Ruben wrap. Patient was then transferred to the stretcher and taken to recovery room in stable condition. Sponge and needle counts were correct. The publisher assistant PRTAIK Beth was required due the complexity surgery and the need for a skilled rn neurosurgical. She assisted in positioning, draping, retraction, and closure of the wound.
[2023-01-01] MEDS ORDERED: ONDANSETRON 4 MG/2 ML VIAL IVP PRN (09:04)
[2023-01-01] MEDS ORDERED: MAGNESIUM HYDROXIDE 2,400 MG/30 ML CUP PO PRN (09:04)
[2023-01-01] MEDS ORDERED: NALOXONE 0.4 MG/ML 1 ML VIAL IV PRN (09:04)
[2023-01-01] MEDS ORDERED: NA PHOS,M-B/NA PHOS,DI-BA 133 ML ENEMA RECTAL PRN (09:04)
[2023-01-01] MEDS ORDERED: bisacodyL 10 MG SUPP RECTAL PRN (09:04)
[2023-01-01] MEDS ORDERED: HYDROcodone/APAP 7.5-325MG 1 EACH TAB PO PRN (09:06)
[2023-01-01] MEDS ORDERED: ROPIVACAINE 0.2%-NS ON-Q PUMP 2 MG/ML EACH MISCELLANE PRN (09:14)
--- NOTE | 2023-01-01 09:26 | XR ---
EXAMINATION TYPE: XR knee limited RT DATE OF EXAM: 01/01/2023 COMPARISON: NONE TECHNIQUE: Two views submitted HISTORY: Post op FINDINGS: There is a prosthetic knee in near anatomic alignment. There is soft tissue edema and soft tissue e mphysema. IMPRESSION: 1. Postoperative change. Appears in near-anatomic alignment
[2023-01-01] MEDS: HYDROcodone/APAP 7.5-325MG 1 EACH TAB PO PRN ×2 (09:49→21:57)
[2023-01-01] MEDS: LACTATED RINGERS 1,000 ML IV SCH (11:04)
[2023-01-01] MEDS: SODIUM CHLORIDE 0.9% 1,000 ML IV SCH (11:31)
[2023-01-01] MEDS ORDERED: ALPRAZolam 0.25 MG TAB PO PRN (12:42)
[2023-01-01] MEDS ORDERED: LEVOTHYROXINE 50 MCG TAB PO SCH (12:45)
[2023-01-01] MEDS ORDERED: FAMOTIDINE 20 MG TAB PO SCH ×2 (12:59→21:00)
[2023-01-01] MEDS ORDERED: ATORVASTATIN 20 MG TAB PO SCH (21:00)
[2023-01-01] MEDS ORDERED: SENNOSIDES-DOCUSATE SODIUM 1 EACH TAB PO SCH (21:00)
[2023-01-01] MEDS: LEVOTHYROXINE 50 MCG TAB PO SCH (21:55)
[2023-01-01] MEDS: ASPIRIN 325 MG TAB PO SCH (21:57)
[2023-01-02 03:33] VITALS: RESP 17
[2023-01-02] MEDS: HYDROcodone/APAP 7.5-325MG 1 EACH TAB PO PRN ×2 (04:13→11:53)
--- NOTE | 2023-01-02 06:59 | P.PN ---
Progress Note - Text Progress Note Date: 01/02/23 Postoperative day # 1 status post total knee arthroplasty, and adductor canal catheter placed for postoperative analgesia, currently at ropivacaine 0.2% 8 mL per hour and continuous infusion, visual analogue scale is 3/10, patient using oral pain medication for breakthrough pain. Assessment and plan= Acute postoperative pain, adductor canal catheter for pain control, pain is well controlled we'll continue the same management.
[2023-01-02 08:07] VITALS: TEMP 98
[2023-01-02] MEDS: ASPIRIN 325 MG TAB PO SCH (08:48)
[2023-01-02] MEDS: LEVOTHYROXINE 50 MCG TAB PO SCH (08:49)
[2023-01-02] MEDS: LACTATED RINGERS 1,000 ML IV SCH (08:49)
[2023-01-02] MEDS: SODIUM CHLORIDE 0.9% 1,000 ML IV SCH (08:51)
[2023-01-02 08:59] VITALS: BP 106/58; PULSE 67
[2023-01-02 09:44] LABS: Basophils % (A) 0 %; Eosinophils % (A) 0 %; HCT 35.7 % (34.0-46.0); HGB 11.6 gm/dL (11.4-16.0); Lymphocytes # (A) 0.8 k/uL (1.0-4.8); Lymphocytes % (A) 7 %; MCH 29.8 pg (25.0-35.0); MCHC 32.6 g/dL (31.0-37.0); MCV 91.4 fL (80.0-100.0); Monocytes # (A) 0.3 k/uL (0-1.0); Monocytes % (A) 2 %; Neutrophils # (A) 9.9 k/uL (1.3-7.7); Neutrophils % (A) 90 %; Platelet Count 183 k/uL (150-450); RDW 12.7 % (11.5-15.5)
--- NOTE | 2023-01-02 10:22 | P.DS ---
Providers Expected date of discharge: 01/02/23 Attending physician: Greg Nolen Consults: 01/01/23 09:04 Consult Physician Routine Consulting Provider: Pamella Jackson Consult Reason/Comments: medical management Do you want consulting provider notified?: Yes Primary care physician: Pamella Jackson - Discharge Diagnosis(es) (1) Osteoarthritis of right knee Current Visit: Yes Status: Acute (2) S/P total knee arthroplasty Current Visit: Yes Status: Acute Hospital Course: This is a 77-year-old female with known history of degenerative arthritis of the right knee. The patient presented for evaluation as an outpatient. After discussion and consideration patient elects to proceed with total knee arthroplasty. The patient is seen preoperatively by Dr. Nolen and medically cleared for surgery by their primary care physician. Patient is admitted to [facility] on 01/01/2023 for total knee arthroplasty. The procedure is performed without complication or sequelae. The patient is doing well postoperatively. Labs and vital signs are stable on day of discharge. On day of discharge patient's knee incision is healing well. There is minimal erythema. There is no drainage noted at this time. There is minimal soft tissue swelling to the knee. Patient has full foot and ankle motion without difficulty or pain. Calf is soft and nontender to palpation. Neurovascular status to the right lower extremity is intact. Patient is discharged home in good condition. Please see [facility] rec for accurate list of home medications. Plan - Discharge Summary Discharge Rx Participant: Yes New Discharge Prescriptions: New Aspirin 325 mg PO BID #60 tab HYDROcodone/APAP 7.5-325MG [[place] 7.5-325] 1 - 2 tab PO Q6H PRN #32 tab PRN Reason: Pain Sennosides [Senokot] 2 tab PO DAILY PRN #60 tablet PRN Reason: Constipation No Action Simvastatin [Zocor] 40 mg PO HS Levothyroxine Sodium [Synthroid] 50 mcg PO MOTUWETHFRSA Levothyroxine Sodium [Synthroid] 75 mcg PO MIRANDA Calcium Carbonate [Calcium] 1,000 mg PO DAILY Famotidine [Pepcid] 40 mg PO HS lisinopriL [Zestril] 2.5 mg PO HS #0 Aspirin 81 mg PO HS Cholecalciferol [Vitamin D3 (25 Mcg = 1000 Iu)] 50 mcg PO DAILY Biotin [Flft-Ztxa-Nefop] 10,000 mcg PO DAILY ALPRAZolam [Xanax] 0.25 mg PO DIRECTED PRN PRN Reason: Anxiety Discharge Medication List Levothyroxine Sodium [Synthroid] 50 mcg PO MOTUWETHFRSA 03/21/19 [History] Simvastatin [Zocor] 40 mg PO HS 03/21/19 [History] Calcium Carbonate [Calcium] 1,000 mg PO DAILY 04/27/19 [History] Levothyroxine Sodium [Synthroid] 75 mcg PO MIRANDA 04/27/19 [History] Famotidine [Pepcid] 40 mg PO HS 06/01/20 [History] lisinopriL [Zestril] 2.5 mg PO HS #0 06/08/20 [Rx] Aspirin 81 mg PO HS 07/04/21 [History] ALPRAZolam [Xanax] 0.25 mg PO DIRECTED PRN 12/25/22 [History] Biotin [Ipdb-Twhu-Nlnpv] 10,000 mcg PO DAILY 12/25/22 [History] Cholecalciferol [Vitamin D3 (25 Mcg = 1000 Iu)] 50 mcg PO DAILY 12/25/22 [History] Aspirin 325 mg PO BID #60 tab 01/01/23 [Rx] HYDROcodone/APAP 7.5-325MG [[place] 7.5-325] 1 - 2 tab PO Q6H PRN #32 tab 01/01/23 [Rx] Sennosides [Senokot] 2 tab PO DAILY PRN #60 tablet 01/01/23 [Rx] Follow up Appointment(s)/Referral(s): [facility], [NON-STAFF] - 1 Week ([facility] will call you to arrange a visit) [facility] [NON-STAFF] - 1 Week (Call [facility] when you get home and they will deliver your CPM) Greg Nolen DO [Doctor of Osteopathic Medicine] - 2 Weeks Activity/Diet/Wound Care/Special Instructions: Weightbearing as tolerated with a walker. CPM 5-6h daily as tolerated. Leave dressing intact. Dressing may be removed by home care nurse or by patient in 7 days. Then change dressing twice daily until follow up. May shower with initial dressing intact and after removal. If dressing become saturated, please remove. Recommend use of compression stockings daily until follow up to help prevent swelling and blood clots. May remove at night before sleeping. Please take aspirin 325mg twice daily for 30 days to prevent blood clots. Please follow up with [facility] and call with any questions or concerns, . Discharge Disposition: HOME WITH HOME HEALTH SERVICES
[2023-01-06] MEDS ORDERED: LEVOTHYROXINE 75 MCG TAB PO SCH (06:30)
== END 2023-01-02 14:22 | disposition home health service (06) ==
LOC: OR 05:32 → 4SSUR 08:57 → OR 01-02 14:22
PROVIDERS: ATTEND Orthopaedic Surgery
DX: M17.11 Unilateral primary osteoarthritis, right knee (principal); I10 Essential (primary) hypertension; E03.9 Hypothyroidism, unspecified; E78.5 Hyperlipidemia, unspecified; Z82.49 Family history of ischemic heart disease and other diseases of the circulatory system; Z79.890 Hormone replacement therapy; Z98.890 Other specified postprocedural states; Z79.899 Other long term (current) drug therapy; Z86.59 Personal history of other mental and behavioral disorders
CPT/HCPCS: 97161; 64999; 64448; 85025; 73560; 27447; C1713; C1776; C1751; J2250; J1100; J0690 ×2; J2405; J2795

== ENCOUNTER → 2023-01-14 | Outpatient (CLI) | payer MEDICARE ==
--- NOTE | 2023-01-14 17:10 | US ---
EXAMINATION TYPE: US venous doppler duplex LE RT DATE OF EXAM: 01/14/2023 4:49 PM COMPARISON: NONE CLINICAL INDICATION: Female, 77 years old with history of I80.9 PHLEBITIS; pain post op knee surgery x 2 weeks ago SIDE PERFORMED: Right TECHNIQUE: The lower extremity deep venous system is examined utilizing real time linear array sonog kyle with graded compression, doppler sonography and color-flow sonography. VESSELS IMAGED: Common Femoral Vein Deep Femoral Vein Greater Saphenous Vein * Femoral Vein Popliteal Vein Small Saphenous Vein * Proximal Calf Veins (* superficial vessels) Right Leg: Negative for DVT IMPRESSION: 1. Right lower extremity ultrasound negative for deep venous thrombosis.
== END | disposition home or self-care (01) ==
LOC: RADUSWWP 16:13
PROVIDERS: ATTEND Orthopaedic Surgery
DX: I80.9 Phlebitis and thrombophlebitis of unspecified site (principal); M17.11 Unilateral primary osteoarthritis, right knee; M21.061 Valgus deformity, not elsewhere classified, right knee; Z47.1 Aftercare following joint replacement surgery; Z96.651 Presence of right artificial knee joint

== ENCOUNTER → 2023-06-07 | Outpatient (CLI) | payer MEDICARE ==
--- NOTE | 2023-06-10 12:22 | MM ---
Reason for Exam: Screening (asymptomatic). Last screening mammogram was performed 12 month(s) ago. Patient History: Menarche at age 10. First Full-Term at age 23. Postmenopausal. Other cancer, age 58. Estrogen, starting at age 59 for 2 years, 10 months. Progesterone, starting at age 59 for 2 years, 10 months. Risk Values: Belkis 5 year model risk: 1.9%. NCI Lifetime model risk: 3.1%. Prior Study Comparison: 06/01/2020 Bilateral Screening Mammogram, [facility]. 06/02/2021 Bilateral Screening Mammogram, [facility]. 06/05/2022 Bilateral MG 3D screening mammo w/cad, [facility]. Tissue Density: There are scattered areas of fibroglandular density. Findings: Analyzed By CAD. There is no suspicious group of microcalcifications or new suspicious mass. Benign-appearing calcifications bilaterally. Overall Assessment: Benign, BI-RAD 2 Management: Screening Mammogram of both breasts in [address] [facility] will attempt to contact patient to return for supplemental views and ultrasound if indicated. Patient should continue monthly self-breast exams. A clinical breast exam by your physician is recommended on an annual basis. This exam should not preclude additional follow-up of suspicious palpable abnormalities. Note on Belkis scores and lifetime risk: 1. A Belkis score greater than 3% is considered moderate risk. If this is the case, consider specialist referral to assess eligibility for a risk reducing agent. 2. If overall lifetime risk for the development of breast cancer is 20% or higher, the patient may qualify for future screening with alternating mammogram and breast MRI. Electronically signed and approved by: Mike Michaud DO
== END | disposition home or self-care (01) ==
LOC: RADMAMWWP 10:49
PROVIDERS: ATTEND Obstetrics & Gynecology
DX: Z12.31 Encounter for screening mammogram for malignant neoplasm of breast (principal); Z78.0 Asymptomatic menopausal state
CPT/HCPCS: 77063; 77067

== ENCOUNTER → 2023-08-26 | Outpatient (CLI) | payer MEDICARE ==
[~2023-08-26] MED LIST changes: -ACETAMINOPHEN TAB 500 MG TAB PO PRN; -GABAPENTIN 300 MG CAP PO PRN; -MELOXICAM 7.5 MG TAB PO PRN; +SODIUM CHLORIDE 0.9% 500 ML 500 ML in EMPTY BAG 1 BAG IV PRN; -TRANEXAMIC 1,000 MG/100ML-NACL 1,000 MG in SALINE 1 100ML.BAG IVPB PRN; +ZOLEDRONIC ACID 5 MG in SODIUM CHLORIDE 0.9% 100 ML IV NR
[2023-08-26 14:39] VITALS: BP 122/66; PULSE 64; RESP 16; TEMP 97.4
== END ==
LOC: PROCWHC3 12:53
PROVIDERS: ATTEND Internal Medicine
DX: M81.0 Age-related osteoporosis without current pathological fracture (principal)
CPT/HCPCS: 96365; J3489

== ENCOUNTER 2024-01-23 10:30 | Emergency (ER) | payer MEDICARE ==
[2024-01-23 10:40] VITALS: RESP 18; TEMP 97.5
--- NOTE | 2024-01-23 10:51 | ED ---
Dizziness HPI - General Chief Complaint: Dizziness Stated Complaint: Weakness Time Seen by Provider: 01/23/24 10:40 Source: patient, RN notes reviewed Mode of arrival: wheelchair Limitations: no limitations - History of Present Illness Initial Comments: This is an 78-year-old female who presents to the emergency department for an episode of weakness. States that she was walking around in [employer] and they had just gotten started with shopping. She then states that she started to feel off and weak. She is unsure how to describe this sensation. She did not have any chest pain or shortness of breath, she just did not feel like herself. They got in the car and decided to come here because she did not feel like she should go home without being checked out first. Denies any headaches. Also denies ever feeling like this in the past. MD Complaint: lightheadedness - Related Data Home Medications Medication Instructions Recorded Confirmed Levothyroxine Sodium [Synthroid] 50 mcg PO MOTUWETHFRSA 03/21/19 08/26/23 Simvastatin [Zocor] 40 mg PO HS 03/21/19 08/26/23 Calcium Carbonate [Calcium] 1,000 mg PO DAILY 04/27/19 08/26/23 Levothyroxine Sodium [Synthroid] 75 mcg PO MIRANDA 04/27/19 08/26/23 Famotidine [Pepcid] 40 mg PO HS 06/01/20 08/26/23 Aspirin 81 mg PO HS 07/04/21 08/26/23 ALPRAZolam [Xanax] 0.25 mg PO DIRECTED PRN 12/25/22 08/26/23 Biotin [Duaz-Jrua-Xpohu] 10,000 mcg PO DAILY 12/25/22 08/26/23 Cholecalciferol [Vitamin D3 (25 50 mcg PO DAILY 12/25/22 08/26/23 Mcg = 1000 Iu)] Previous Rx's Medication Instructions Recorded lisinopriL [Zestril] 2.5 mg PO HS #0 06/08/20 Aspirin 325 mg PO BID #60 tab 01/01/23 HYDROcodone/APAP 7.5-325MG [[place] 1 - 2 tab PO Q6H PRN #32 tab 01/01/23 7.5-325] Sennosides [Senokot] 2 tab PO DAILY PRN #60 tablet 01/01/23 Allergies Allergy/AdvReac Type Severity Reaction Status Date / Time Sulfa (Sulfonamide Allergy Rash/Hives Verified 01/23/24 10:35 Antibiotics) Review of Systems ROS Statement: Those systems with pertinent positive or pertinent negative responses have been documented in the HPI. ROS Other: All systems not noted in ROS Statement are negative. Past Medical History Past Medical History: GERD/Reflux, Hyperlipidemia, Hypertension, Musculoskeletal Disorder, Osteoarthritis (OA), Thyroid Disorder Additional Past Medical History / Comment(s): recently in hospital for colitis, vomiting, diarrhea, rectal bleeding, has chronic stable pericardial effusion per pt., History of Any Multi-Drug Resistant Organisms: None Reported Past Surgical History: Orthopedic Surgery Additional Past Surgical History / Comment(s): colonoscopy, Left Total Hip, total right knee Past Anesthesia/Blood Transfusion Reactions: No Reported Reaction Past Psychological History: Anxiety Smoking Status: Never smoker Past Alcohol Use History: Daily Past Drug Use History: None Reported - Past Family History Mother Family Medical History: Coronary Artery Disease (CAD) Father History Unknown: Yes Family Medical History: Hypertension Brother(s) Family Medical History: No Reported History Sister(s) Family Medical History: No Reported History Daughter(s) Family Medical History: No Reported History Son(s) Family Medical History: No Reported History General Exam Limitations: no limitations General appearance: alert, in no apparent distress Head exam: Present: atraumatic, normocephalic, normal inspection Eye exam: Present: normal appearance, PERRL, EOMI. Absent: scleral icterus, conjunctival injection, periorbital swelling Respiratory exam: Present: normal lung sounds bilaterally. Absent: respiratory distress, wheezes, rales, rhonchi, stridor Cardiovascular Exam: Present: regular rate, normal rhythm, normal heart sounds. Absent: systolic murmur, diastolic murmur, rubs, gallop, clicks Neurological exam: Present: alert, oriented X3, CN II-XII intact Psychiatric exam: Present: normal affect, normal mood Skin exam: Present: warm, dry, intact, normal color. Absent: rash Course Vital Signs 01/23/24 01/23/24 01/23/24 10:36 11:00 12:56 Temperature 97.5 F L Pulse Rate 79 51 L 78 Respiratory 18 18 18 Rate Blood Pressure 152/76 142/63 108/55 O2 Sat by Pulse 98 98 98 Oximetry Medical Decision Making - Medical Decision Making This is an 78 year old female who presents to the emergency department for weakness. Was pt. sent in by a medical professional or institution? @ -No Did you speak to anyone other than the patient for history? @ -No Did you review nursing and triage notes? @ -Yes, and I agree, it is accurate with regards to the patient's symptoms. Were old charts reviewed? @ -No Differential Diagnosis? @ -Differential Weakness: Hypoglycemia, shock, sepsis, hyponatremia, anemia, infection, PR, ETOH, adverse medicine reaction, overdose, stroke, this is not meant to be an all-inclusive list. EKG interpreted by me (3pts min.)? @ -EKG interpreted by me demonstrating the following: Sinus bradycardia. Ventricular rate 54 bpm, CA interval 149 ms, QRS duration 86 ms, QTc 432 ms. X-rays interpreted by me (1pt min.)? @ -Not obtained CT interpreted by me (1pt min.)? @ -Not obtained U/S interpreted by me (1pt. min.)? @ -Not obtained What testing was considered but not performed? (CT, X-rays, U/S, labs)? Why? @ -None What meds were considered but not given? Why? @ -None Did you discuss the management of the patient with other professionals? @ -No Did you reconcile home meds? @ -No Was smoking cessation discussed for >3mins.? @ -No Was critical care preformed (if so, how long)? @ -No Were there social determinants of health that impacted care today? How? (Homelessness, low income, unemployed, alcoholism, drug addiction, transportation, low edu. Level, literacy, decrease access to med. care, half-way, rehab)? @ -No Was there de-escalation of care discussed even if they declined? (Discuss DNR or withdrawal of care, Hospice)? @ -No What co-morbidities impacted this encounter? (DM, HTN, Smoking, COPD, CAD, Cancer, CVA, Hep., AIDS, mental health diagnosis, sleep apnea, morbid obesity)? @ -None Was patient admitted / discharged? @ -Discharged. Lab work unremarkable. Urinalysis negative for signs of infection. Patient given a liter bolus of IV fluids. After the fluids she got up to ambulate and states that she felt significantly better. We discussed having her thyroid rechecked. States that she saw her tin flopper about 6 weeks ago and everything was normal at that time. She will otherwise follow-up with her primary care provider for reevaluation. Patient discharged home in stable condition. Case discussed with ED attending Dr. Mckeon. Return precautions reviewed in depth, the patient is instructed to return to the emergency department with any new, worsening, or concerning symptoms. Patient verbalized understanding. Undiagnosed new problem with uncertain prognosis? @ -None Drug Therapy requiring intensive monitoring for toxicity (Heparin, Nitro, Insulin, Cardizem)? @ -None Were any procedures done? @ -None Diagnosis/symptom? @ -Weakness Acute, or Chronic, or Acute on Chronic? @ -Acute Uncomplicated (without systemic symptoms) or Complicated (systemic symptoms)? @ -Uncomplicated Side effects of treatment? @ -None Exacerbation, Progression, or Severe Exacerbation] @ -Not applicable Poses a threat to life or bodily function? @ -No - Lab Data Result diagrams: 01/23/24 11:05 01/23/24 11:05 Lab Results 01/23/24 01/23/24 01/23/24 Range/Units 11:05 11:05 11:05 WBC 5.7 (3.8-10.6) k/uL RBC 4.65 (3.80-5.40) m/uL Hgb 13.4 (11.4-16.0) gm/dL Hct 41.6 (34.0-46.0) % MCV 89.6 (80.0-100.0) fL MCH 28.8 (25.0-35.0) pg MCHC 32.1 (31.0-37.0) g/dL RDW 12.7 (11.5-15.5) % Plt Count 219 (150-450) k/uL MPV 7.2 Neutrophils % 59 % Lymphocytes % 26 % Monocytes % 6 % Eosinophils % 7 % Basophils % 1 % Neutrophils # 3.4 (1.3-7.7) k/uL Lymphocytes # 1.5 (1.0-4.8) k/uL Monocytes # 0.3 (0-1.0) k/uL Eosinophils # 0.4 (0-0.7) k/uL Basophils # 0.0 (0-0.2) k/uL PT 10.2 (10.0-12.5) sec INR 0.9 (<1.2) Sodium (137-145) mmol/L Potassium (3.5-5.1) mmol/L Chloride (98-107) mmol/L Carbon Dioxide (22-30) mmol/L Anion Gap mmol/L BUN (7-17) mg/dL Creatinine (0.52-1.04) mg/dL Est GFR (CKD-EPI)AfAm (>60 ml/min/1.73 sqM) Est GFR (CKD-EPI)NonAf (>60 ml/min/1.73 sqM) Glucose (74-99) mg/dL Plasma Lactic Acid [place] (0.7-2.0) mmol/L Calcium (8.4-10.2) mg/dL Magnesium (1.6-2.3) mg/dL Total Bilirubin (0.2-1.3) mg/dL AST (14-36) U/L ALT (4-34) U/L Alkaline Phosphatase (38-126) U/L Troponin I (0.000-0.034) ng/mL Total Protein (6.3-8.2) g/dL Albumin (3.5-5.0) g/dL Urine Color Colorless Urine Appearance Clear (Clear) Urine pH 5.5 (5.0-8.0) Ur Specific [place] 1.014 (1.001-1.035) Urine Protein Negative (Negative) Urine Glucose (UA) Negative (Negative) Urine Ketones Negative (Negative) Urine Blood Negative (Negative) Urine Nitrite Negative (Negative) Urine Bilirubin Negative (Negative) Urine Urobilinogen <2.0 (<2.0) mg/dL Ur Leukocyte Esterase Negative (Negative) 01/23/24 01/23/24 01/23/24 Range/Units 11:05 11:05 11:05 WBC (3.8-10.6) k/uL RBC (3.80-5.40) m/uL Hgb (11.4-16.0) gm/dL Hct (34.0-46.0) % MCV (80.0-100.0) fL MCH (25.0-35.0) pg MCHC (31.0-37.0) g/dL RDW (11.5-15.5) % Plt Count (150-450) k/uL MPV Neutrophils % % Lymphocytes % % Monocytes % % Eosinophils % % Basophils % % Neutrophils # (1.3-7.7) k/uL Lymphocytes # (1.0-4.8) k/uL Monocytes # (0-1.0) k/uL Eosinophils # (0-0.7) k/uL Basophils # (0-0.2) k/uL PT (10.0-12.5) sec INR (<1.2) Sodium 138 (137-145) mmol/L Potassium 4.0 (3.5-5.1) mmol/L Chloride 105 (98-107) mmol/L Carbon Dioxide 27 (22-30) mmol/L Anion Gap 6 mmol/L BUN 21 H (7-17) mg/dL Creatinine 0.82 (0.52-1.04) mg/dL Est GFR (CKD-EPI)AfAm 78 (>60 ml/min/1.73 sqM) Est GFR (CKD-EPI)NonAf 68 (>60 ml/min/1.73 sqM) Glucose 75 (74-99) mg/dL Plasma Lactic Acid [place] 1.2 (0.7-2.0) mmol/L Calcium 9.3 (8.4-10.2) mg/dL Magnesium 1.9 (1.6-2.3) mg/dL Total Bilirubin 0.8 (0.2-1.3) mg/dL AST 33 (14-36) U/L ALT 16 (4-34) U/L Alkaline Phosphatase 47 (38-126) U/L Troponin I <0.012 (0.000-0.034) ng/mL Total Protein 6.7 (6.3-8.2) g/dL Albumin 4.2 (3.5-5.0) g/dL Urine Color Urine Appearance (Clear) Urine pH (5.0-8.0) Ur Specific [place] (1.001-1.035) Urine Protein (Negative) Urine Glucose (UA) (Negative) Urine Ketones (Negative) Urine Blood (Negative) Urine Nitrite (Negative) Urine Bilirubin (Negative) Urine Urobilinogen (<2.0) mg/dL Ur Leukocyte Esterase (Negative) Disposition Clinical Impression: Weakness Disposition: HOME SELF-CARE Instructions (If sedation given, give patient instructions): Weakness (ED) Additional Instructions: Return to the emergency department with any new, worsening, or concerning symptoms. Follow up with your primary care provider in 1-2 days. Is patient prescribed a controlled substance at d/c from ED?: No Referrals: Pamella Jackson MD [Primary Care Provider] - 1-2 days Time of Disposition: 12:25
[2024-01-23] MEDS: SODIUM CHLORIDE 0.9% 1,000 ML IV STA (11:03)
[2024-01-23 11:14] LABS: Basophils % (A) 1 %; Eosinophils # (A) 0.4 k/uL (0-0.7); Eosinophils % (A) 7 %; HCT 41.6 % (34.0-46.0); HGB 13.4 gm/dL (11.4-16.0); Lymphocytes # (A) 1.5 k/uL (1.0-4.8); Lymphocytes % (A) 26 %; MCH 28.8 pg (25.0-35.0); MCHC 32.1 g/dL (31.0-37.0); MCV 89.6 fL (80.0-100.0); Mean Platelet Volume 7.2; Monocytes # (A) 0.3 k/uL (0-1.0); Monocytes % (A) 6 %; Neutrophils # (A) 3.4 k/uL (1.3-7.7); Neutrophils % (A) 59 %; Platelet Count 219 k/uL (150-450); RBC 4.65 m/uL (3.80-5.40); RDW 12.7 % (11.5-15.5); WBC 5.7 k/uL (3.8-10.6)
[2024-01-23 11:22] LABS: INR 0.9 (<1.2); Prothrombin Time 10.2 sec (10.0-12.5)
[2024-01-23 11:29] LABS: ALT 16 U/L (4-34); AST 33 U/L (14-36); African American GFR (CKD) 78 (>60 ml/min/1.73 sqM); Albumin 4.2 g/dL (3.5-5.0); Alkaline Phosphatase 47 U/L (38-126); Anion Gap 6 mmol/L; Blood Urea Nitrogen 21 mg/dL (7-17); Calcium 9.3 mg/dL (8.4-10.2); Carbon Dioxide 27 mmol/L (22-30); Chloride 105 mmol/L (98-107); Glucose 75 mg/dL (74-99); Magnesium 1.9 mg/dL (1.6-2.3); Non-African American GFR(CKD) 68 (>60 ml/min/1.73 sqM); Sodium 138 mmol/L (137-145); Total Bilirubin 0.8 mg/dL (0.2-1.3); Total Protein 6.7 g/dL (6.3-8.2)
[2024-01-23 12:22] LABS: Appearance,Urine Clear (Clear); Bilirubin,Urine Negative (Negative); Blood,Urine Negative (Negative); Color,Urine Colorless; Glucose,Urine (UA) Negative (Negative); Ketones,Urine Negative (Negative); Leukocyte Esterase,Urine Negative (Negative); Nitrite,Urine Negative (Negative); PH, Urine 5.5 (5.0-8.0); Protein,Urine Negative (Negative); Specific Gravity,Urine 1.014 (1.001-1.035); Urobilinogen,Urine <2.0 mg/dL (<2.0)
[2024-01-23 12:57] VITALS: BP 108/55; PULSE 78
== END 2024-01-23 13:00 | disposition home or self-care (01) ==
LOC: EC 10:30
DX: R53.1 Weakness (principal); Z88.2 Allergy status to sulfonamides
CPT/HCPCS: 36415; 80053; 81003; 83605; 83735; 84484; 85025; 85610; 93005; 96360; 99284

== ENCOUNTER → 2024-03-10 | Outpatient (CLI) | payer MEDICARE ==
[2024-03-10 13:36] VITALS: BP 146/76; PULSE 59; RESP 17; TEMP 97.8
--- NOTE | 2024-03-10 16:37 | P.HPOB ---
History of Present Illness H&P Date: 03/10/24 Chief Complaint: The patient is here for her routine gynecologic exam. This is an 78-year-old G6, P6 with an LMP of approximately 1991. The patient is here to establish with this office. She previously saw Dr. Gamble for her gynecologic care. She has last been seen by Dr. Gamble about 1 year ago. She states she has seen him regularly for many years. She has no history of cervical or Pap smear problems. Her last Pap smear with Dr. Gamble was negative on 01/29/2017. She is without gynecologic complaints and denies any postmenopausal bleeding. Review of Systems Her weight has been stable. She denies respiratory or GI problems. Cardiac: Occasional palpitations and has a hazmat technician that she sees for this. Past Medical History Past Medical History: GERD/Reflux, Hyperlipidemia, Hypertension, Musculoskeletal Disorder, Osteoarthritis (OA), Thyroid Disorder Additional Past Medical History / Comment(s): Has chronic stable pericardial effusion per pt. hypothyroidism. Osteoporosis(has used Fosamax and later Reclast). 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 History of Any Multi-Drug Resistant Organisms: None Reported Past Surgical History: Orthopedic Surgery Additional Past Surgical History / Comment(s): Left Total Hip, total right knee replacement. Bilateral cataracts. Colonoscopy 2019. Past Anesthesia/Blood Transfusion Reactions: No Reported Reaction Past Psychological History: Anxiety Smoking Status: Never smoker Past Alcohol Use History: Daily (Half of a wine cooler daily.) Past Drug Use History: None Reported Additional History: She has been since 1968. - Past Family History Mother Family Medical History: Coronary Artery Disease (CAD) Additional Family Medical History / Comment(s): . Father History Unknown: Yes Family Medical History: Hypertension Additional Family Medical History / Comment(s): . Paternal grandmother had diabetes Brother(s) Family Medical History: No Reported History Sister(s) Family Medical History: No Reported History Daughter(s) Family Medical History: No Reported History Son(s) Family Medical History: No Reported History Medications and Allergies Home Medications Medication Instructions Recorded Confirmed Type Levothyroxine Sodium [Synthroid] 50 mcg PO MOTUWETHFRSA 03/21/19 03/10/24 History Simvastatin [Zocor] 40 mg PO HS 03/21/19 03/10/24 History Calcium Carbonate [Calcium] 1,000 mg PO DAILY 04/27/19 03/10/24 History Levothyroxine Sodium [Synthroid] 75 mcg PO MIRANDA 04/27/19 03/10/24 History Famotidine [Pepcid] 40 mg PO HS 06/01/20 03/10/24 History lisinopriL [Zestril] 2.5 mg PO HS #0 06/08/20 03/10/24 Rx Aspirin 81 mg PO HS 07/04/21 03/10/24 History ALPRAZolam [Xanax] 0.25 mg PO DIRECTED PRN 12/25/22 03/10/24 History Biotin [Alnf-Odny-Oibrf] 10,000 mcg PO DAILY 12/25/22 03/10/24 History Cholecalciferol [Vitamin D3 (25 50 mcg PO DAILY 12/25/22 03/10/24 History Mcg = 1000 Iu)] Zoledronic Acid 5Mg/100Ml Pmx 1 mg IJ DIRECTED 03/10/24 03/10/24 History [Reclast] Allergies Allergy/AdvReac Type Severity Reaction Status Date / Time Sulfa (Sulfonamide Allergy Rash/Hives Verified 03/10/24 13:30 Antibiotics) Exam Vital Signs Temp Pulse Resp BP Pulse Ox 03/10/24 13:33 97.8 F 59 L 17 146/76 100 Intake and Output 03/09/24 03/10/24 03/10/24 22:59 06:59 14:59 Other: Weight 55.338 kg Height 5 feet 4 inches, weight 122 pounds, BMI 20.9. This is a well-developed well-nourished white female who is alert and oriented times 3 in no acute distress. HEENT: Within normal limits. NECK: Supple without mass or thyromegaly. CHEST AND LUNGS: Clear to auscultation. HEART: Regular rate and rhythm. BREASTS: Are without mass or discharge. AXILLARY EXAM: Negative for adenopathy. BACK: Negative for CVA tenderness. ABDOMEN: Soft, nontender, without palpable masses. PELVIC EXAM: Normal external genitalia with moderate atrophy. Cervix and vagina appear normal with moderate atrophy. There is no unusual discharge. There is no evidence of prolapse. The uterus is midposition, nongravid size and nontender. There are no palpable adnexal masses or tenderness. RECTAL EXAM: Rectovaginal exam is negative for mass or tenderness and is negative for occult blood. EXTREMITIES: Nontender. IMPRESSION: 1. 78-year-old menopausal female with normal gynecologic exam. 2. History of osteoporosis. She has used some form of bisphosphonate on and off for several years. She has been currently on Reclast 1-1/2 years as prescribed by her aviation safety equipment technician. Last infusion was July 2023. PLAN: 1. Pap smear was performed. She indicates that she had been screened regularly prior to age 63 with no history of cervical or Pap smear problems. If this Pap smear is negative today, we will plan on discontinuing Pap smears. 2. Self breast awareness was discussed with the patient. We have also discussed symptoms associated with inflammatory breast cancer. 3. Screening mammogram was normal on 06/07/2023. Will plan on repeating it after 1 year. The order slip was given to the patient for this. 4. Osteoporosis management was discussed. I have stressed the importance of adequate calcium, vitamin D and regular exercise. Recommended amounts of calcium and vitamin D were also discussed. Her last bone density test was done on 06/05/2022. She will repeat this after about 2 years from the last 1. She will continue treatment as recommended by Dr. Gonzalez. 5. She had a benign colonoscopy done in 2019. She can discuss with her PCP and Dr. Baldwin, her GI doctor, if and when she should do this again. 6. She was advised to return in one year for her annual well woman exam.
== END ==
LOC: WWCWWP 13:12
PROVIDERS: ATTEND Obstetrics & Gynecology
DX: Z01.419 Encounter for gynecological examination (general) (routine) without abnormal findings (principal); M81.0 Age-related osteoporosis without current pathological fracture; Z78.0 Asymptomatic menopausal state; Z88.2 Allergy status to sulfonamides

== ENCOUNTER → 2024-06-08 | Outpatient (CLI) | payer MEDICARE ==
--- NOTE | 2024-06-08 11:21 | MM ---
Reason for Exam: Screening (asymptomatic). Last screening mammogram was performed 12 month(s) ago. Patient History: Menarche at age 10. First Full-Term at age 23. Postmenopausal. Other cancer, age 58. Estrogen, starting at age 59 for 2 years, 10 months. Progesterone, starting at age 59 for 2 years, 10 months. Risk Values: Belkis 5 year model risk: 1.8%. NCI Lifetime model risk: 2.8%. Prior Study Comparison: 06/02/2021 Bilateral Screening Mammogram, [facility]. 06/05/2022 Bilateral MG 3D screening mammo w/cad, [facility]. 06/07/2023 Bilateral MG 3D screening mammo w/cad, [facility]. Tissue Density: There are scattered areas of fibroglandular density. Findings: Analyzed By CAD. Benign appearing vascular calcification bilaterally is redemonstrated. A few small benign-appearing round calcifications bilaterally are also redemonstrated. There is no suspicious new group of microcalcifications or new suspicious mass in either breast. Overall Assessment: Benign, BI-RAD 2 Management: Screening Mammogram of both breasts in 1 year. . Patient should continue monthly self-breast exams. A clinical breast exam by your physician is recommended on an annual basis. This exam should not preclude additional follow-up of suspicious palpable abnormalities. Note on Belkis scores and lifetime risk: 1. A Belkis score greater than 3% is considered moderate risk. If this is the case, consider specialist referral to assess eligibility for a risk reducing agent. 2. If overall lifetime risk for the development of breast cancer is 20% or higher, the patient may qualify for future screening with alternating mammogram and breast MRI. [facility], , 06/08/2024 11:19 AM. Electronically signed and approved by: Efrain Jacobson M.D.
== END | disposition home or self-care (01) ==
LOC: RADMAMWWP 10:23
PROVIDERS: ATTEND Obstetrics & Gynecology
DX: Z12.31 Encounter for screening mammogram for malignant neoplasm of breast (principal); R92.323 Mammographic fibroglandular density, bilateral breasts; Z78.0 Asymptomatic menopausal state
CPT/HCPCS: 77063; 77067

== ENCOUNTER → 2024-06-08 | Outpatient (CLI) | payer MEDICARE ==
--- NOTE | 2024-06-08 11:44 | BD ---
EXAMINATION TYPE: Axial Bone Density DATE OF EXAM: 06/08/2024 CLINICAL HISTORY: 78 years old Female. ICD-10 CODE: Z78.0 MENOPAUSAL , Additional History: Height: 63.5 Weight: 120 FRAX RISK QUESTIONS: Family History (Parent hip fracture): yes History of Fracture in Adulthood: no Secondary Osteoporosis: no RISK FACTORS HISTORY OF: Surgery to Hip(left): yes When: 05/2020 MEDICATIONS: Thyroid Medications: yes Which medication: Synthroid How Lon+ years Osteoporosis Medications: no EXAM MEASUREMENTS: Bone mineral densitometry was performed using the [employer] System. Bone mineral density as measured about the Lumbar spine is: ----- L1-L4(G/cm2): 1.174 T Score Values are as follows: ----- L1: -1.7 ----- L2: 0.4 ----- L3: 0.8 ----- L4: 0.1 ----- L1-L4: 0.0 Z Score Values are as follows: ----- L1: 0.6 ----- L2: 2.6 ----- L3: 3.0 ----- L4: 2.3 ----- L1-L4: 2.2 Bone mineral density has: Increased 6.4% since study of: 06/05/2022 Bone mineral density about the R hip (g/cm2): 0.635 T Score values are as follows: -----R Neck: -2.3 -----R Total: -3.0 Z Score values are as follows: -----R Neck: 0.1 -----R Total: -0.6 Bone mineral density has: Decreased -5.5% since study of: 06/05/2022 FRAX%s: The graph provided illustrates a 39.0% chance for a major osteoporotic fx and a 26.8% chance for the hips probability for fx in 10 years time. IMPRESSION: Osteoporosis (T Score less than -2.5) remains present. There is increased fracture risk and therapy is usually indicated based on age. Re-Screen 1-2 years. NOTE: T-SCORE=SD OF THE YOUNG ADULT MEAN. [facility], , 06/08/2024 11:42 AM
--- NOTE | 2024-06-08 11:51 | XR ---
EXAMINATION TYPE: XR thoracic spine 2V DATE OF EXAM: 06/08/2024 11:46 AM COMPARISON: None CLINICAL INDICATION: Female, 78 years old with history of Z78.0 MENOPAUSAL STATE; PHH, pain TECHNIQUE: XR thoracic spine 2V views of the spine in Frontal, swimmers and lateral projections. FINDINGS: No evidence of acute fracture. There is scattered multilevel disk space narrowing without loss of ve rtebral body height. There is mild dextroscoliotic alignment of the thoracic vertebral bodies. Scatte red osteophyte formation along the anterior and lateral aspects of the vertebral bodies. Neural lucas en are patent given limitations of this exam. Spinal canal appears patent. IMPRESSION: 1. No acute osseous pathology. 2. [id number] multilevel degeneration changes of the spine. [facility], , 06/08/2024 11:49 AM
--- NOTE | 2024-06-08 11:52 | XR ---
EXAMINATION TYPE: XR lumbar spine 2 or 3V DATE OF EXAM: 06/08/2024 11:46 AM COMPARISON: None CLINICAL INDICATION: Female, 78 years old with history of Z78.0 MENOPAUSAL STATE; PHH, pain TECHNIQUE: XR lumbar spine 2 or 3V - Frontal, lateral and coned in L5-S1 lateral views of the spine. FINDINGS: No evidence of any acute osseous pathology. No evidence of loss of vertebral body height i s seen. There is levoscoliotic alignment L3 apex of the lumbar vertebral bodies. Scattered disc space narrowing. Multilevel marginal osteophyte formation throughout the visualized spine. There is facet joint arthropathy throughout the spine. Scattered at least mild neural foraminal stenosis. IMPRESSION: 1. No acute fracture. 2. 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 [facility], , 06/08/2024 11:50 AM
== END | disposition home or self-care (01) ==
LOC: RADBDWWP 10:26
PROVIDERS: ATTEND Internal Medicine
DX: M51.35 Other intervertebral disc degeneration, thoracolumbar region (principal); M81.0 Age-related osteoporosis without current pathological fracture; M47.896 Other spondylosis, lumbar region; Z78.0 Asymptomatic menopausal state
CPT/HCPCS: 72070; 72100; 77080

== ENCOUNTER → 2024-09-01 | Outpatient (CLI) | payer MEDICARE ==
[~2024-09-01] MED LIST changes: +SODIUM CHLORIDE 0.9% 250 ML in EMPTY BAG 1 BAG IV PRN; -SODIUM CHLORIDE 0.9% 500 ML 500 ML in EMPTY BAG 1 BAG IV PRN; -ZOLEDRONIC ACID 5 MG in SODIUM CHLORIDE 0.9% 100 ML IV NR
[2024-09-01 12:41] VITALS: BP 114/72; PULSE 58; RESP 16; TEMP 97.9
[2024-09-01] MEDS: ZOLEDRONIC ACID 5 MG in SODIUM CHLORIDE 0.9% 100 ML IV NR (12:46)
[2024-09-01] MEDS: SODIUM CHLORIDE 0.9% 500 ML 500 ML in EMPTY BAG 1 BAG IV PRN (12:46)
== END ==
LOC: PROCWHC3 12:21
PROVIDERS: ATTEND Internal Medicine
DX: M81.0 Age-related osteoporosis without current pathological fracture (principal)
CPT/HCPCS: 96365; J3489